=== PATIENT | male | born 1975 | race Caucasian/White ===

== ENCOUNTER 2024-06-18 14:03 | Inpatient (IN) | payer MEDICAID, SELFPAY ==
[2024-06-18] VITALS (7 sets, daily range): BP systolic 119–138; BP diastolic 73–87; PULSE 104–111; RESP 15–19; TEMP 36.5–36.9; O2SAT 96–98; BMI 22.5
--- NOTE | ~2024-06-18 | XR_ITS ---
CLINICAL HISTORY: elevated WBC, souce unclear 2 view chest x-ray Comparison: None Findings: Low lung volumes atelectasis/pneumonitis. Infectious inflammatory etiologies are favored by imaging given the asymmetry, right worse than left. Atypical or superimposed edema is considered less likely. Mild emphysematous changes suggested. No pneumothorax or pleural effusion. Cardiac silhouette and mediastinal contours are within limits of normal. Right lateral rib deformities appear subacute to old with callus formation and remodeling at this time. IMPRESSION: Nonspecific pulmonary opacities, right worse than left. Differential considerations include pneumonitis and/or pneumonia. This document has been electronically signed by: Lowell Marroquin MD on 06/18/2024 21:20:06
--- NOTE | ~2024-06-18 | CT_ITS ---
CLINICAL HISTORY: New liver failure, abdo pain, elevated lipase CT abdomen and pelvis without contrast Comparison: None Findings: No consolidation of the imaged lung bases. Mild eventration of the left hemidiaphragm, dorsally. Mild free fluid in the abdomen pelvis may be due to ascites given question mild liver surface contour curvature particularly at anterior margin of the left lobe (image number 22 of series 2). Free fluid may obscure sites of inflammation including about the pancreas, gallbladder, bowel, and appendix. Index cystic structure is medially directed to the left from the uncinate process of the pancreas measuring 2.6 cm (image number 32 of series 2). The spleen is nonenlarged. The adrenal glands are normal. No hydronephrosis. No obstructing stone in either kidney or either ureter. Gallbladder is distended with mild wall thickening. This is nonspecific given underlying liver disease. Mild fluid and dilatation of small-bowel loops is nonspecific. Mild ileus secondary to ascites is considered. Small-bowel obstruction is considered less likely by imaging. Wall thickening of the large intestine is nonspecific and diffuse. Imaged appendix is nondilated (image number 55 of series 2). Prostate gland is unremarkable for CT. Urinary bladder is unremarkable accounting for volume averaging in the pelvis. Vascular calcifications noted. Degenerative changes include imaged hips, SI joints, and spine. Degenerative disc changes include vacuum disc phenomenon and disc bulges at L4-L5 and L5-S1 mild inferior migration of the gas of the disc material at the lumbosacral junction. Minimal vertebral height losses appear old chronic. IMPRESSION: 1. Mild liver surface contour abnormality concerning for cirrhosis. Moderate free fluid in the abdomen and pelvis as can be seen with ascites. The spleen is nonenlarged at this time. 2. Nonspecific cystic lesion medially directed from the uncinate process of the pancreas, measuring 2.6 cm. Differential considerations include small pseudocyst. Walled-off area of necrosis and neoplasm are not excluded by noncontrast CT. Please consider follow-up; as clinically directed. 3. Mild small bowel dilatation is nonspecific. Differential considerations include ileus secondary to ascites. 4. Diffuse wall thickening of the large intestine. Differential considerations include ascites. 5. Degenerative disc changes greater than expected for age, particularly in the lower lumbar spine. This document has been electronically signed by: Lowell Marroquin MD on 06/18/2024 19:01:49
--- NOTE | ~2024-06-18 | XR_ITS ---
EXAMINATION: XR CHEST 1 VIEW HISTORY: sob COMPARISON: Comparison is made with the prior examination dated 06/18/2024. FINDINGS: A single AP portable view of the chest performed at 1:39 PM is submitted. There are diffuse bilateral airspace opacities, slightly greater on the right. Findings may represent diffuse pneumonia or ARDS. Less likely pulmonary edema. There is no pleural effusion, pneumothorax, or pulmonary vascular congestion. The heart is normal in size. The bones are intact. XR/XR chest 1V IMPRESSION: Diffuse bilateral airspace opacities compatible, with pneumonia or ARDS. Pulmonary edema is felt to be less likely given normal heart size and lack of pleural effusions. Electronically signed by: Juwan Kelley MD 06/22/2024 01:53 PM SUJAT[facility]
--- NOTE | ~2024-06-18 | US_ITS ---
Ultrasound paracentesis History: Ascites. Risks and benefits and possible complications were discussed with the patient and consent form was signed. A safe pocket of ascitic fluid was identified using ultrasound guidance, and the overlying skin was marked. The abdomen prepped and draped in sterile fashion. 1% lidocaine was used as a local anesthetic. Using ultrasound guidance, a 5 fr catheter was placed into the ascitic pocket. 2.0 liters of yellow fluid was removed passively. The catheter was then removed. A few scheduling representative images from before and after the examination were obtained. The procedure was performed by Alessio Bella PA-C and supervised by Dr. Viveros. US/US paracentesis abd w/image Impression: Ultrasound-guided paracentesis as described above. No immediate complications Electronically signed by: Patrick Morgan MD 06/21/2024 05:26 PM [facility] JOHNSON
--- NOTE | 2024-06-18 15:01 | ED_ITS ---
HPI - General Adult General Chief complaint: Abdominal Pain Stated complaint: Abd pain, jaundice, GI bleed Time Seen by Provider: 06/18/24 17:00 History of Present Illness ED Provider: Chong LAM narrative: The patient is a 48-year-old male with a history of alcoholism. He also has a history of previous episodes of alcoholic pancreatitis. The patient says that around 2.5 weeks ago he started to experience a sense of abdominal discomfort and distention coupled with some degree of yellowing of his skin. These symptoms have gotten worse over the last few weeks and over the last 2 days he has been experiencing worsening abdominal discomfort and distention. His family has been trying to get him to come to the emergency room for the last couple of weeks but he has been reluctant to come to the hospital hoping he would get better on his own if he stopped drinking. Over the last 2 days the pain has gotten worse and he finally agreed to come to the hospital. Related Data Allergies Allergy/AdvReac Type Severity Reaction Status Date / Time No Known Allergies Allergy Verified 06/18/24 15:03 Review of Systems 2 Review of Systems: Yes all other systems are reviewed and are negative [facility] Social History Social History Alcohol intake: current Alcohol intake frequency: a few times a week Alcohol type: beer and hard liquor Smoked in Last 30 Days: Yes Use of substances other than those prescribed or required for medical reasons: Yes Substance Use Type: Marijuana Substance Use Frequency: Occasionally Advance Directives: No Advance Directives Information Provided: Yes Do you have a plan to hurt others: No Plan Physical Exam ED Vital Signs: Vital Signs - 24 hr 06/18/24 15:01 06/18/24 17:04 06/18/24 17:42 Temperature 98.4 F 97.9 F Pulse Rate 111 H 104 H Respiratory Rate 18 16 16 Blood Pressure 138/73 136/78 Pulse Oximetry 98 97 Oxygen Delivery Method Room Air Room Air 06/18/24 19:20 06/18/24 20:02 06/18/24 20:16 Temperature 97.7 F Pulse Rate 107 H 105 H 108 H Respiratory Rate 18 15 19 Blood Pressure 119/80 124/87 133/79 Pulse Oximetry 97 96 98 Oxygen Delivery Method Room Air Room Air BMI result Body Mass Index 22.5 Const Other: The patient is awake and alert. He seems fairly coherent. He is obviously jaundiced. He looks quite chronically ill. He does not seem in acute distress or toxic however. HENMT Other: Face is symmetrical. Mucous membranes are moist. Eyes Other: Pupils are round equal, scleral icterus is present. Neck Neck: Yes no JVD Resp Effort & Inspection: normal respiratory effort Auscultation: clear to auscultation bilaterally Cardio Rate: tachycardic Rhythm: regular rhythm Heart sounds: S1 normal heart sound present and S2 normal heart sound present GI Other: The abdomen is distended and somewhat firm. He has left-sided tenderness. No rebound. Skin Other: The skin is jaundiced. Neuro Other: The patient is awake and alert. He says that he feels that his thoughts are somewhat confused but he does not seem frankly incoherent or encephalopathic. I do not appreciate any asterixis. Cranial nerves are intact. He moves his extremities symmetrically. Extrem Other: Slight peripheral edema at the ankles. Course Course Course Narrative: This is an RME performed by Sarika Herrmann CNP: Additional HPI, ROS, PE not included below will be deferred to primary provider. Patient is a 48-year-old male who presents emergency department for evaluation. He admits that he does not follow with a doctor regularly. Admits to a history of pancreatitis 7 years ago secondary to alcohol use disorder. He reports he last consume alcohol 05/27/2024 as he was experiencing abdominal pain afterwards. Soon thereafter he noticed that his skin was turning yellow, his abdomen was quite painful round and distended, and has been having intermittent episodes of light pink/red blood from the rectum when pushing for a bowel movement. Exam: Jaundice, tachycardic, abdominal distention firm and tender to palpate. catering administrative assistant made aware of patient. Plan: Serum labs, hepatitis series, viral serologies Medications Administered Discontinued Medications Generic Name Dose Route Start Last Admin Trade Name Freq PRN Reason Stop Dose Admin Ceftriaxone Sodium 1 gm 06/18/24 21:39 06/18/24 22:00 Ceftriaxone Sodium 1 Gm Vial IVPUSH 06/18/24 21:40 1 gm ONCE ONE Administration Sodium Chloride 1,000 mls @ 999 mls/hr 06/18/24 18:45 06/18/24 19:53 Ns IV 06/18/24 19:45 Infused .Q1H1M EMILY Infusion Sodium Chloride 1,000 mls @ 999 mls/hr 06/18/24 21:45 06/18/24 23:34 Ns IV 06/18/24 22:45 Infused .Q1H1M EMILY Infusion Azithromycin 500 mg/ Sodium 250 mls @ 125 mls/hr 06/18/24 21:40 06/18/24 22:07 Chloride IV 06/18/24 23:39 125 mls/hr ONCE ONE Administration Lidocaine HCl 5 ml 06/18/24 19:38 06/18/24 20:04 Lidocaine Hcl 1 % Mpf 5 Ml Vial INFILTRATI 06/18/24 19:39 5 ml ONCE ONE Administration Morphine Sulfate 4 mg 06/18/24 17:17 06/18/24 17:42 Morphine Sulfate 4 Mg/Ml Cartridge IVPUSH 06/18/24 17:18 4 mg ONCE ONE Administration Protocol Morphine Sulfate 4 mg 06/18/24 22:04 06/18/24 22:24 Morphine Sulfate 4 Mg/Ml Cartridge IVPUSH 06/18/24 22:05 4 mg ONCE ONE Administration Protocol Procedures Paracentesis Time Out Performed: Yes Indication: possible spontaneous bacterial peritonitis Procedure: diagnostic paracentesis Location: RLQ Local Anesthetic: lidocaine 1% Amount of anesthesia used (mL): 3 Bedside Ultrasound Used: yes, Ascites confirmed and location marked Preparation: sterile prep and drape Amount of fluid obtained (mL): 50 Fluid: clear (Straw colored) Size of Needle Used: 18 Post Procedure Exam: awake, alert Patient Tolerated Procedure: well Complications: none Medical Decision Making Medical Decision Making [facility] Narrative: The patient is a 48-year-old male who was an alcoholic who presents with jaundice and significant liver decompensation. Presumably this is a a great deal of alcoholic liver disease. Whether this is an acute alcoholic hepatitis or a decompensation of cirrhosis is not entirely clear at the moment. He also has compromised renal function. I performed a diagnostic paracentesis after identifying a pocket of fluid of the ultrasound. This was done under sterile conditions. The fluid was clear straw- colored fluid. Cell count does not suggest spontaneous bacterial peritonitis. The patient has high white count. CRP is also somewhat elevated. Blood cultures were sent although my suspicion for an acute infection is not very high. A chest x-ray was done more to look for a possible source of his elevated white count than because of symptoms of pneumonia. I was somewhat surprised that the x-ray was read as showing signs of pneumonitis. The patient will be covered with antibiotics, ceftriaxone and azithromycin, because of the x-ray finding but my suspicion for a definite acute infectious process is still very low and I do not think the patient is septic. His lactate is normal. His urinalysis is not suggestive of a UTI. I discussed the case with Dr. Singh of Gastroenterology. The patient will be hydrated overnight. The patient has Madrey's discrimination score is high. Steroids may be started after a period of observation. The patient will be admitted to the hospitalist service for further care. Lab Data 06/18/24 15:58 06/18/24 15:58 Labs: Lab Results 06/18/24 06/18/24 06/18/24 Range/Units 15:22 15:58 17:21 WBC 27.2 H (4.8-10.8) X10*3/uL RBC 3.81 L (4.60-5.80) X10*6/uL Hgb 11.5 L (14.0-18.0) g/dl Hct 33.0 L (42.0-52.0) % MCV 86.6 (80.0-98.0) fL MCH 30.2 (27.0-33.0) pg MCHC 34.9 (31.0-36.0) g/dl RDW 15.0 (11.0-16.0) % Plt Count 375 (160-400) X10*3/uL MPV 10.9 (9.4-12.4) fL Immature Gran % (Auto) Cancelled Neut % (Auto) Cancelled Lymph % (Auto) Cancelled [place]wey % (Auto) Cancelled Eos % (Auto) Cancelled Baso % (Auto) Cancelled Lymph # (Auto) Cancelled [place]wey # (Auto) Cancelled Eos # (Auto) Cancelled Baso # (Auto) Cancelled Abs Immat Gran (auto) Cancelled Absolute Neuts (auto) Cancelled Absolute Nucleated RBC 0.000 (0.0-0.012) X10*3/uL Nucleated RBC % (auto) 0.0 (0.0-0.2) /100WBC Neutrophils % (Manual) 87 H (45-73) % Band Neutrophils % 4 (3-5) % Lymphocytes % (Manual) 3 L (20-40) % Monocytes % (Manual) 6 (2-11) % Abs Neuts (Manual) 24.8 H (2.0-8.3) X10*3/uL Lymphocytes # (Manual) 0.8 L (1.2-4.9) X10*3/uL Monocytes # (Manual) 1.6 H (0.1-1.2) X10*3/uL Toxic Vacuolation PRESENT Platelet Estimate NORMAL (NORMAL) Large Platelets PRESENT Plt Morphology Comment NOTED RBC Morphology NOTED Microcytosis 1+ (5-14) /OIF Target Cells 1+ (5-14) /OIF [place] Cells 1+ (0-2) /OIF PT 22.9 H (10.9-12.4) SEC INR 2.0 H (0.9-1.1) Sodium 124 L (135-145) mmol/L Potassium 3.8 (3.3-5.1) mmol/L Chloride 85 L (96-108) mmol/L Carbon Dioxide 28 (22-29) mmol/L Anion Gap 15 (12-20) BUN 28 H (9-16) mg/dL Creatinine 2.49 H (0.5-1.4) mg/dL Estim Creat Clear Calc 36.2 Estimated GFR 28 Random Glucose 120 H (60-115) mg/dL Lactic Acid 1.7 (0.5-2.0) mmol/L Calcium 8.8 (8.4-10.2) mg/dL Magnesium 1.8 (1.6-2.6) mg/dL Total Bilirubin 17.7 H (0.0-1.0) mg/dL Direct Bilirubin 12.9 H (0.0-0.5) mg/dL AST 207 H (5-37) U/L ALT 86 H (0-40) U/L Alkaline Phosphatase 118 H (39-117) U/L Ammonia (13-55) umol/L C-Reactive Protein 9.93 H (< or = 0.50) mg/dL Total Protein 8.2 H (6.5-8.0) g/dL Albumin 2.3 L (3.5-5.0) g/dL Lipase 445 H (8-78) U/L Urine Color Urine Appearance Urine pH (5.0-9.0) Ur Specific [place] (1.005-1.025) Urine Protein (Neg-Trace) mg/dL Urine Glucose (UA) (Negative) mg/dL Urine Ketones (Negative) mg/dL Urine Blood (Negative) Urine Nitrite (Negative) Ur Leukocyte Esterase (Negative) Urine RBC (0-2) /HPF Urine WBC (0-5) /HPF Ur Squamous Epith Cells (0-2) /HPF Urine Bacteria (None Seen) Hyaline Casts (0-2) /LPF Granular Casts Peritoneal WBC X10*3/uL Peritoneal RBC X10*6/uL Periton Neutrophils % Periton Lymphocytes % Peritoneal Monocytes % Peritoneal Other Cells % Ethyl Alcohol < 10 mg/dL Influenza Type A (PCR) NEGATIVE (Negative) Influenza Type B (PCR) NEGATIVE (Negative) RSV RNA Qual (PCR) NEGATIVE (Negative) SARS-CoV-2 RNA (RT-PCR) NEGATIVE (Negative) Blood Type Antibody Screen Blood Bank Comment 06/18/24 06/18/24 06/18/24 Range/Units 17:56 18:07 20:14 WBC (4.8-10.8) X10*3/uL RBC (4.60-5.80) X10*6/uL Hgb (14.0-18.0) g/dl Hct (42.0-52.0) % MCV (80.0-98.0) fL MCH (27.0-33.0) pg MCHC (31.0-36.0) g/dl RDW (11.0-16.0) % Plt Count (160-400) X10*3/uL MPV (9.4-12.4) fL Immature Gran % (Auto) Neut % (Auto) Lymph % (Auto) [place] % (Auto) Eos % (Auto) Baso % (Auto) Lymph # (Auto) [place] # (Auto) Eos # (Auto) Baso # (Auto) Abs Immat Gran (auto) Absolute Neuts (auto) Absolute Nucleated RBC (0.0-0.012) X10*3/uL Nucleated RBC % (auto) (0.0-0.2) /100WBC Neutrophils % (Manual) (45-73) % Band Neutrophils % (3-5) % Lymphocytes % (Manual) (20-40) % Monocytes % (Manual) (2-11) % Abs Neuts (Manual) (2.0-8.3) X10*3/uL Lymphocytes # (Manual) (1.2-4.9) X10*3/uL Monocytes # (Manual) (0.1-1.2) X10*3/uL Toxic Vacuolation Platelet Estimate (NORMAL) Large Platelets Plt Morphology Comment RBC Morphology Microcytosis /OIF Target Cells /OIF Michelle Cells /OIF PT (10.9-12.4) SEC INR (0.9-1.1) Sodium (135-145) mmol/L Potassium (3.3-5.1) mmol/L Chloride (96-108) mmol/L Carbon Dioxide (22-29) mmol/L Anion Gap (12-20) BUN (9-16) mg/dL Creatinine (0.5-1.4) mg/dL Estim Creat Clear Calc Estimated GFR Random Glucose (60-115) mg/dL Lactic Acid 1.2 (0.5-2.0) mmol/L Calcium (8.4-10.2) mg/dL Magnesium (1.6-2.6) mg/dL Total Bilirubin (0.0-1.0) mg/dL Direct Bilirubin (0.0-0.5) mg/dL AST (5-37) U/L ALT (0-40) U/L Alkaline Phosphatase (39-117) U/L Ammonia 103 H (13-55) umol/L C-Reactive Protein (< or = 0.50) mg/dL Total Protein (6.5-8.0) g/dL Albumin (3.5-5.0) g/dL Lipase (8-78) U/L Urine Color Urine Appearance Urine pH (5.0-9.0) Ur Specific [place] (1.005-1.025) Urine Protein (Neg-Trace) mg/dL Urine Glucose (UA) (Negative) mg/dL Urine Ketones (Negative) mg/dL Urine Blood (Negative) Urine Nitrite (Negative) Ur Leukocyte Esterase (Negative) Urine RBC (0-2) /HPF Urine WBC (0-5) /HPF Ur Squamous Epith Cells (0-2) /HPF Urine Bacteria (None Seen) Hyaline Casts (0-2) /LPF Granular Casts Peritoneal WBC 0.220 X10*3/uL Peritoneal RBC < 0.002 X10*6/uL Periton Neutrophils 21 % Periton Lymphocytes 16 % Peritoneal Monocytes 32 % Peritoneal Other Cells 31 % Ethyl Alcohol mg/dL Influenza Type A (PCR) (Negative) Influenza Type B (PCR) (Negative) RSV RNA Qual (PCR) (Negative) SARS-CoV-2 RNA (RT-PCR) (Negative) Blood Type A Positive Antibody Screen NEGATIVE Blood Bank Comment Technical 06/18/24 Range/Units 22:08 WBC (4.8-10.8) X10*3/uL RBC (4.60-5.80) X10*6/uL Hgb (14.0-18.0) g/dl Hct (42.0-52.0) % MCV (80.0-98.0) fL MCH (27.0-33.0) pg MCHC (31.0-36.0) g/dl RDW (11.0-16.0) % Plt Count (160-400) X10*3/uL MPV (9.4-12.4) fL Immature Gran % (Auto) Neut % (Auto) Lymph % (Auto) [place] % (Auto) Eos % (Auto) Baso % (Auto) Lymph # (Auto) [place] # (Auto) Eos # (Auto) Baso # (Auto) Abs Immat Gran (auto) Absolute Neuts (auto) Absolute Nucleated RBC (0.0-0.012) X10*3/uL Nucleated RBC % (auto) (0.0-0.2) /100WBC Neutrophils % (Manual) (45-73) % Band Neutrophils % (3-5) % Lymphocytes % (Manual) (20-40) % Monocytes % (Manual) (2-11) % Abs Neuts (Manual) (2.0-8.3) X10*3/uL Lymphocytes # (Manual) (1.2-4.9) X10*3/uL Monocytes # (Manual) (0.1-1.2) X10*3/uL Toxic Vacuolation Platelet Estimate (NORMAL) Large Platelets Plt Morphology Comment RBC Morphology Microcytosis /OIF Target Cells /OIF [place] Cells /OIF PT (10.9-12.4) SEC INR (0.9-1.1) Sodium (135-145) mmol/L Potassium (3.3-5.1) mmol/L Chloride (96-108) mmol/L Carbon Dioxide (22-29) mmol/L Anion Gap (12-20) BUN (9-16) mg/dL Creatinine (0.5-1.4) mg/dL Estim Creat Clear Calc Estimated GFR Random Glucose (60-115) mg/dL Lactic Acid (0.5-2.0) mmol/L Calcium (8.4-10.2) mg/dL Magnesium (1.6-2.6) mg/dL Total Bilirubin (0.0-1.0) mg/dL Direct Bilirubin (0.0-0.5) mg/dL AST (5-37) U/L ALT (0-40) U/L Alkaline Phosphatase (39-117) U/L Ammonia (13-55) umol/L C-Reactive Protein (< or = 0.50) mg/dL Total Protein (6.5-8.0) g/dL Albumin (3.5-5.0) g/dL Lipase (8-78) U/L Urine Color Dark Yellow Urine Appearance Cloudy Urine pH 5.0 (5.0-9.0) Ur Specific [place] 1.020 (1.005-1.025) Urine Protein 30 (1+) H (Neg-Trace) mg/dL Urine Glucose (UA) Negative (Negative) mg/dL Urine Ketones Negative (Negative) mg/dL Urine Blood Negative (Negative) Urine Nitrite Positive H (Negative) Ur Leukocyte Esterase Small (1+) H (Negative) Urine RBC >20 H (0-2) /HPF Urine WBC 0-5 (0-5) /HPF Ur Squamous Epith Cells 11-20 (0-2) /HPF Urine Bacteria None Seen (None Seen) Hyaline Casts 11-20 (0-2) /LPF Granular Casts Present Peritoneal WBC X10*3/uL Peritoneal RBC X10*6/uL Periton Neutrophils % Periton Lymphocytes % Peritoneal Monocytes % Peritoneal Other Cells % Ethyl Alcohol mg/dL Influenza Type A (PCR) (Negative) Influenza Type B (PCR) (Negative) RSV RNA Qual (PCR) (Negative) SARS-CoV-2 RNA (RT-PCR) (Negative) Blood Type Antibody Screen Blood Bank Comment Independent Interpretation I performed an independent interpretation of an: EKG Interpretation: EKG at 15:12 shows sinus tachycardia at 109 beats per minute. Discharge Plan Discharge Clinical Impression: Jaundice, Ascites, Acute kidney injury, Hyponatremia, Pneumonitis Patient Disposition: Admitted As Inpatient
--- NOTE | 2024-06-18 15:05 | ECG_ITS ---
Test Reason : ABD PAIN Blood Pressure : */* mmHG Vent. Rate : 109 BPM Atrial Rate : 109 BPM P-R Int : 134 ms QRS Dur : 88 ms QT Int : 356 ms P-R-T Axes : 39 15 18 degrees QTcB Int : 479 ms Sinus tachycardia Otherwise normal ECG No previous ECGs available Referred By: Myah Herrmann Electronically Signed By: Saleem Dominguez
[2024-06-18 16:10] LABS: Mean Corpuscular Volume 86.6 fL (80.0-98.0); Mean Platelet Volume 10.9 fL (9.4-12.4); Platelet Count 375 X10*3/uL (160-400); Red Blood Count 3.81 X10*6/uL (4.60-5.80)
[2024-06-18 16:16] LABS: Prothrombin Time 22.9 SEC (10.9-12.4)
[2024-06-18 16:32] LABS: Influenza A PCR NEGATIVE (Negative); Influenza B PCR NEGATIVE (Negative); Resp Syncy Virus RNA Qual PCR NEGATIVE (Negative); SARS COV2 PCR INHOUSE NEGATIVE (Negative)
[2024-06-18 16:36] LABS: Alanine Aminotransferase 86 U/L (0-40); Albumin Level 2.3 g/dL (3.5-5.0); Alkaline Phosphatase 118 U/L (39-117); Anion Gap 15 (12-20); Aspartate Amino Transferase 207 U/L (5-37); Bilirubin Direct 12.9 mg/dL (0.0-0.5); Bilirubin Total 17.7 mg/dL (0.0-1.0); Blood Urea Nitrogen 28 mg/dL (9-16); Calcium 8.8 mg/dL (8.4-10.2); Carbon Dioxide 28 mmol/L (22-29); Chloride 85 mmol/L (96-108); Creatinine Clr Calc Pharmacy 36.2; Estimated Glomerular Filt Rate 28; Ethanol < 10 mg/dL; Glucose Random 120 mg/dL (60-115); Magnesium 1.8 mg/dL (1.6-2.6); Potassium 3.8 mmol/L (3.3-5.1); Sodium 124 mmol/L (135-145); Total Protein 8.2 g/dL (6.5-8.0)
[2024-06-18 16:37] LABS: Lipase 445 U/L (8-78)
[2024-06-18 16:54] LABS: Hemoglobin 11.5 g/dl (14.0-18.0); WBC ABN SCTR FOR CBC 1; White Blood Count 27.2 X10*3/uL (4.8-10.8)
[2024-06-18 16:55] LABS: Mean Corpuscular Hemoglobin 30.2 pg (27.0-33.0)
[2024-06-18 16:56] LABS: Mean Corpuscular HGB Conc 34.9 g/dl (31.0-36.0)
[2024-06-18 17:18] LABS: Band Neutrophils Percent 4 % (3-5); Lymphocytes Absolute Manual 0.8 X10*3/uL (1.2-4.9); Lymphocytes Percent Manual 3 % (20-40); Monocytes Absolute Manual 1.6 X10*3/uL (0.1-1.2); Monocytes Percent Manual 6 % (2-11); Neutrophils Absolute Manual 24.8 X10*3/uL (2.0-8.3); Neutrophils Percent Manual 87 % (45-73); RBC Morphology NOTED; Target Cells 1+ (5-14) /OIF
[2024-06-18 17:19] LABS: Burr Cells 1+ (0-2) /OIF; Large Platelet PRESENT; Microcytosis 1+ (5-14) /OIF; Platelet Estimate NORMAL (NORMAL); Platelet Morphology Comment NOTED; Toxic Vacuolation PRESENT
[2024-06-18 17:30] LABS: C Reactive Protein 9.93 mg/dL (< or = 0.50)
[2024-06-18] MEDS: Morphine Sulfate 4 MG/ML CARTRIDGE IVPUSH ×2 (17:42→22:24)
[2024-06-18 17:50] LABS: Lactic Acid 1.7 mmol/L (0.5-2.0)
[2024-06-18 18:27] LABS: Ammonia 103 umol/L (13-55)
[2024-06-18 18:34] LABS: Lactic Acid 1.2 mmol/L (0.5-2.0)
[2024-06-18] MEDS: 0.9 % Sodium Chloride 1,000 ML 999 ML IV ×2 (18:44→21:59)
[2024-06-18] MEDS: Lidocaine HCl 1 % MPF 5 ML VIAL INFILTRATI (20:04)
--- NOTE | 2024-06-18 20:08 | PC.NURSE ---
time out performed by MD Schwarz at 20:08 . diagnostic paracentesis being done for abdominal fluid collection to be sent to lab
[2024-06-18 20:30] LABS: MN% 70.6 %; PMN% 29.4 %
[2024-06-18 20:31] LABS: RBC Peritoneal Fluid < 0.002 X10*6/uL
[2024-06-18 21:13] LABS: BF Shift QC OK YES; Lymphocyte Peritoneal Fl 16 %; Monocytes Peritoneal Fl 32 %; Neutrophils Peritoneal Fluid 21 %; Other Peritioneal Fl 31 %
[2024-06-18] MEDS: cefTRIAXone sodium 1 GM VIAL IVPUSH (22:00)
[2024-06-18] MEDS: Azithromycin 500 MG in 0.9 % Sodium Chloride 250 ML 125 MG IV (22:07)
[2024-06-18 22:25] LABS: Appearance Urine Cloudy; Color Urine Dark Yellow; Glucose Urine UA Negative (Negative); Leukocyte Esterase Urine Small (1+) (Negative); Nitrite Urine Positive (Negative); UMIC TRIGGER UACC YES; Urine Blood Negative (Negative); Urine Ketones Negative (Negative); Urine Protein 30 (1+) mg/dL (Neg-Trace)
[2024-06-18 22:36] LABS: Bacteria Urine None Seen (None Seen); Granular Casts Urine Present; RBC Urine >20 /HPF (0-2); UACC Culture Trigger YES; WBC Urine 0-5 /HPF (0-5)
--- NOTE | 2024-06-18 22:56 | PM.IMHP ---
History of Present Illness Date of Service: 06/18/24 Attending physician on admission: Coretta Aparicio Chief Complaint: Abdominal pain Lazaro Hernandez is a 48 years old man with past medical history is or alcohol abuse presents to the emergency department complaining of worsening generalized abdominal pain over the last couple of days associated with increased abdominal girth, shortness of breath with exertion, nausea, vomiting (nonbloody) and rectal bright red bleeding. He is not aware that his skin and sclerae have yellowish tint. He denied chest pain, headache, palpitations or dizziness. Denies fevers chills. Last time he drank alcohol was May 27. He denied tobacco smoking or illicit drug use. He takes Tylenol very occasionally. He does not take any medication daily. Patient underwent a paracentesis in the emergency department. In the emergency department he was found to have stable vital signs. There is a mild degree of tachycardia. Blood workup showed leukocytosis of 27.2, hemoglobin 11.5 and platelets are normal. CRP is 9.93. INR is 2.0. Sodium is low, 124, potassium is 3.8, BUN is 28 and creatinine 2.49. Lactic acid is normal x2. LFTs are mildly elevated (bilirubin is 17.7, direct bilirubin 12.9, AST 207, ALT 86 and alk-phos 118). Albumin is 2.3 and lipase 445. Ammonia level is elevated 103. EtOH level < 10. Viral testing for COVID-19, influenza and RSV is negative. Hepatitis panel is pending. Abdominal pelvis CT scan showed pancreatic lesion of 2.6 cm that could be neoplasm, small pseudocyst or necrosis. CXR showed finding consistent with pneumonitis. ECG showed sinus tachycardia, heart rate 109 bpm without ischemic changes. Peritoneal fluid analysis is not consistent with infection or hemorrhage. ED tx: Ceftriaxone 1 g IV, morphine 8 mg IV (total), NS 2 L bolus, Review of Systems Review of Systems: All 12 systems were reviewed and normal except as noted in HPI. [facility] Social History Alcohol intake: current Alcohol intake frequency: a few times a week Alcohol type: beer and hard liquor Smoked in Last 30 Days: Yes Use of substances other than those prescribed or required for medical reasons: Yes Substance Use Type: Marijuana Substance Use Frequency: Occasionally Advance Directives: No Advance Directives Information Provided: Yes Do you have a plan to hurt others: No Plan Meds Allergies Allergy/AdvReac Type Severity Reaction Status Date / Time No Known Allergies Allergy Verified 06/18/24 15:03 Active Medications: Current Medications Azithromycin 500 mg/ Sodium (Chloride) 250 mls @ 125 mls/hr IV ONCE ONE Stop: 06/18/24 23:39 Last Admin: 06/18/24 22:07 Dose: 125 mls/hr Ondansetron HCl (Ondansetron Hcl 4 Mg/2 Ml Vial) 4 mg IVPUSH Q8H PRN PRN Reason: Nausea and Vomiting Sodium Chloride (0.9 % Sodium Chloride Flush 3 Ml Syringe) 3 ml IVFLUSH QSHIFT EMILY Physical Exam Vital Signs and Narrative: Vital Signs: Last Vital Signs Temp 97.7 F 06/18/24 19:20 Pulse 108 H 06/18/24 20:16 Resp 19 06/18/24 20:16 BP 133/79 06/18/24 20:16 Pulse Ox 98 06/18/24 20:16 O2 Del Method Room Air 06/18/24 20:16 BMI result Body Mass Index 22.5 Constitutional - Awake and Alert, No apparent distress. Chronically ill. Malnourished. HEENT - PERRL, EOMI. Yellow sclerae. Heart - Tachycardic. Normal rate. No murmurs Lungs - Normal lung expansion, Normal respiratory effort, No respiratory distress. Decreased breath sounds at bases. Abdoment - Distended. Generalized tenderness. No rebound. No guarding. (+) fluid wave. - No CVA tenderness Extremities - Bilateral pitting edema to the lower extremities. Musculoskeletal - generalized atrophy. Skin - Warm/Dry. Marked jaundice. Neurological - Alert & oriented x3. No focal weakness grossly noted. Normal speech. Psychological - Depressed affect Results Labs 06/18/24 15:58 06/18/24 15:58 Labs: Laboratory Results - last 24 hr 06/18/24 06/18/24 06/18/24 15:22 15:58 17:21 MCV 86.6 MCH 30.2 MCHC 34.9 RDW 15.0 Plt Count 375 MPV 10.9 Immature Gran % (Auto) Cancelled Neut % (Auto) Cancelled Lymph % (Auto) Cancelled [place] % (Auto) Cancelled Eos % (Auto) Cancelled Baso % (Auto) Cancelled Lymph # (Auto) Cancelled [place] # (Auto) Cancelled Eos # (Auto) Cancelled Baso # (Auto) Cancelled Abs Immat Gran (auto) Cancelled Absolute Neuts (auto) Cancelled Absolute Nucleated RBC 0.000 Nucleated RBC % (auto) 0.0 Neutrophils % (Manual) 87 H Band Neutrophils % 4 Lymphocytes % (Manual) 3 L Monocytes % (Manual) 6 Abs Neuts (Manual) 24.8 H Lymphocytes # (Manual) 0.8 L Monocytes # (Manual) 1.6 H Toxic Vacuolation PRESENT Platelet Estimate NORMAL Large Platelets PRESENT Plt Morphology Comment NOTED RBC Morphology NOTED Microcytosis 1+ (5-14) Target Cells 1+ (5-14) [place] Cells 1+ (0-2) PT 22.9 H INR 2.0 H Anion Gap 15 Estim Creat Clear Calc 36.2 Estimated GFR 28 Random Glucose 120 H Lactic Acid 1.7 Calcium 8.8 Magnesium 1.8 Total Bilirubin 17.7 H Direct Bilirubin 12.9 H AST 207 H ALT 86 H Alkaline Phosphatase 118 H Ammonia C-Reactive Protein 9.93 H Total Protein 8.2 H Albumin 2.3 L Lipase 445 H Urine Color Urine Appearance Urine pH Ur Specific [place] Urine Protein Urine Glucose (UA) Urine Ketones Urine Blood Urine Nitrite Ur Leukocyte Esterase Urine RBC Urine WBC Ur Squamous Epith Cells Urine Bacteria Hyaline Casts Granular Casts Peritoneal WBC Peritoneal RBC [place] Neutrophils Periton Lymphocytes Peritoneal Monocytes Peritoneal Other Cells Ethyl Alcohol < 10 Influenza Type A (PCR) NEGATIVE Influenza Type B (PCR) NEGATIVE RSV RNA Qual (PCR) NEGATIVE SARS-CoV-2 RNA (RT-PCR) NEGATIVE Blood Type Antibody Screen Blood Bank Comment 06/18/24 06/18/24 06/18/24 17:56 18:07 20:14 MCV MCH MCHC RDW Plt Count MPV Immature Gran % (Auto) Neut % (Auto) Lymph % (Auto) [place] % (Auto) Eos % (Auto) Baso % (Auto) Lymph # (Auto) [place] # (Auto) Eos # (Auto) Baso # (Auto) Abs Immat Gran (auto) Absolute Neuts (auto) Absolute Nucleated RBC Nucleated RBC % (auto) Neutrophils % (Manual) Band Neutrophils % Lymphocytes % (Manual) Monocytes % (Manual) Abs Neuts (Manual) Lymphocytes # (Manual) Monocytes # (Manual) Toxic Vacuolation Platelet Estimate Large Platelets Plt Morphology Comment RBC Morphology Microcytosis Target Cells [place] Cells PT INR Anion Gap Estim Creat Clear Calc Estimated GFR Random Glucose Lactic Acid 1.2 Calcium Magnesium Total Bilirubin Direct Bilirubin AST ALT Alkaline Phosphatase Ammonia 103 H C-Reactive Protein Total Protein Albumin Lipase Urine Color Urine Appearance Urine pH Ur Specific [place] Urine Protein Urine Glucose (UA) Urine Ketones Urine Blood Urine Nitrite Ur Leukocyte Esterase Urine RBC Urine WBC Ur Squamous Epith Cells Urine Bacteria Hyaline Casts Granular Casts Peritoneal WBC 0.220 Peritoneal RBC < 0.002 [place] Neutrophils 21 [place] Lymphocytes 16 Peritoneal Monocytes 32 Peritoneal Other Cells 31 Ethyl Alcohol Influenza Type A (PCR) Influenza Type B (PCR) RSV RNA Qual (PCR) SARS-CoV-2 RNA (RT-PCR) Blood Type A Positive Antibody Screen NEGATIVE Blood Bank Comment Technical 06/18/24 22:08 MCV MCH MCHC RDW Plt Count MPV Immature Gran % (Auto) Neut % (Auto) Lymph % (Auto) [place] % (Auto) Eos % (Auto) Baso % (Auto) Lymph # (Auto) [place] # (Auto) Eos # (Auto) Baso # (Auto) Abs Immat Gran (auto) Absolute Neuts (auto) Absolute Nucleated RBC Nucleated RBC % (auto) Neutrophils % (Manual) Band Neutrophils % Lymphocytes % (Manual) Monocytes % (Manual) Abs Neuts (Manual) Lymphocytes # (Manual) Monocytes # (Manual) Toxic Vacuolation Platelet Estimate Large Platelets Plt Morphology Comment RBC Morphology Microcytosis Target Cells Michelle Cells PT INR Anion Gap Estim Creat Clear Calc Estimated GFR Random Glucose Lactic Acid Calcium Magnesium Total Bilirubin Direct Bilirubin AST ALT Alkaline Phosphatase Ammonia C-Reactive Protein Total Protein Albumin Lipase Urine Color Dark Yellow Urine Appearance Cloudy Urine pH 5.0 Ur Specific [place] 1.020 Urine Protein 30 (1+) H Urine Glucose (UA) Negative Urine Ketones Negative Urine Blood Negative Urine Nitrite Positive H Ur Leukocyte Esterase Small (1+) H Urine RBC >20 H Urine WBC 0-5 Ur Squamous Epith Cells 11-20 Urine Bacteria None Seen Hyaline Casts 11-20 Granular Casts Present Peritoneal WBC Peritoneal RBC Periton Neutrophils Per[place] Lymphocytes Peritoneal Monocytes Peritoneal Other Cells Ethyl Alcohol Influenza Type A (PCR) Influenza Type B (PCR) RSV RNA Qual (PCR) SARS-CoV-2 RNA (RT-PCR) Blood Type Antibody Screen Blood Bank Comment Assessment and Plan (1) Jaundice: Status: Acute (2) Ascites: Status: Acute (3) Acute kidney injury: Status: Acute (4) Hyponatremia: Status: Acute Plan Lazaro Hernanedz is a 48 y/o man admitted with: 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 Admit to hospitalist service. Telemetry. Start treatment with midodrine and octreotide. Continue to monitor LFTs and renal function. Check APAP level. Check urine Na+. GI consult. Nephrology consult. Acute kidney injury likely secondary to above and/or GI bleeding, vomiting. Received 3L NS in ED. Avoid nephrotoxic agents. Continue to monitor renal function. Nephrology consult. Abdominal pain possible due to pancreatitis + pancreatic lesion (2.3) ?Necrosis, ?Small pseudocyst. Start empiric IV antibiotic therapy with Zosyn. Pain control with oxycodone only. Leukocytosis, tachycardia. ?Sepsis. Continue empiric IV antibiotic therapy with Zosyn. Blood cultures obtained -will follow results. Rectal bleeding, bright red, presumed due to hemorrhoids. Continue to monitor H&H. GI consult. Ascites. Peritoneal fluid analysis: Negative for SBP. Will avoid diuretics for now due to HIWOT. IR consult for therapeutic paracentesis (he is still having significant ascites). Hyponatremia. Secondary to 3rd spacing/liver disease. Continue to monitor Elevated ammonia. No signs or symptoms of encephalopathy at this moment. Alcohol abuse. Asthma alcoholic drink 05/2024. CIWA. Thiamine, folic acid and multivitamins. DVT prophylaxis: SCDs only (pharmacological DVT prophylaxis contraindicated due to rectal bleeding). GI prophylaxis: Protonix IV Code status: Full Patient will need hospitalization for at least 2 midnights for liver or renal failure concerning for hepatorenal syndrome treatment with octreotide, albumin and midodrine as well as evaluation by subspecialties. Quality Stroke Does the patient have a stroke diagnosis?: No VTE Prior VTE?: No VTE Risk Level:: Medical - moderate - high VTE Device Contraindication: N/A - Device Ordered VTE Drug Contraindication: Treatment Not Indicated
[2024-06-18] MEDS: Pantoprazole Sodium 40 MG/10 ML VIAL IVPUSH (23:50)
[2024-06-18] MEDS: Octreotide Acetate 500 MCG in 0.9 % Sodium Chloride 500 ML 50.1 MCG IVCONT (23:50)
[2024-06-18] MEDS: Midodrine HCl 2.5 MG TABLET 7.5 MG PO (23:51)
[2024-06-18] MEDS: Thiamine HCL 100 MG in 0.9 % Sodium Chloride 100 ML 202 MG IV (23:55)
[2024-06-19] VITALS (12 sets, daily range): BP systolic 93–131; BP diastolic 59–87; PULSE 105–117; RESP 14–22; TEMP 36.3–36.6; O2SAT 94–98
[2024-06-19] MEDS: ondansetron HCL 4 MG/2 ML VIAL IVPUSH ×3 (00:04→18:10)
[2024-06-19 00:12] LABS: Sodium Urine Random < 20.0 mmol/L
[2024-06-19 00:35] LABS: Hematocrit 31.9 % (42.0-52.0); Hemoglobin 11.8 g/dl (14.0-18.0); Mean Corpuscular Hemoglobin 32.7 pg (27.0-33.0); Mean Corpuscular Volume 88.4 fL (80.0-98.0); Mean Platelet Volume 11.2 fL (9.4-12.4); Platelet Count 304 X10*3/uL (160-400); Red Blood Count 3.61 X10*6/uL (4.60-5.80); Red Cell Distribution Width 15.3 % (11.0-16.0)
[2024-06-19 00:39] LABS: WBC ABN SCTR FOR CBC 1; White Blood Count 26.2 X10*3/uL (4.8-10.8)
[2024-06-19 00:55] LABS: Acetaminophen LAB < 3 mcg/mL (<30); Alanine Aminotransferase 76 U/L (0-40); Alkaline Phosphatase 103 U/L (39-117); Anion Gap 16 (12-20); Aspartate Amino Transferase 194 U/L (5-37); Bilirubin Total 15.7 mg/dL (0.0-1.0); Blood Urea Nitrogen 29 mg/dL (9-16); Carbon Dioxide 23 mmol/L (22-29); Chloride 92 mmol/L (96-108); Creatinine Clr Calc Pharmacy 39.9; Estimated Glomerular Filt Rate 31; Glucose Random 98 mg/dL (60-115); Potassium 3.8 mmol/L (3.3-5.1); Sodium 127 mmol/L (135-145); Total Protein 7.3 g/dL (6.5-8.0)
--- NOTE | 2024-06-19 03:29 | PC.NURSE ---
pt resting comfortably on stretcher in no apparent distress, on athletic monitor. call taveras within reach, plan of care ongoing.
[2024-06-19 04:20] LABS: B Type Natriuretic Peptide 117 pg/mL (<100)
[2024-06-19 04:38] LABS: HBc Num1 0.14 S/CO (0.00-0.79); Hepatitis A Antibody IgM 0.22 Index (0-0.79); Hepatitis B Core Antibody Nonreactive (Nonreactive); Hepatitis B Surface Antigen Negative (Negative); ~HepC Num1 0.17 S/CO (0.00-0.79); ~Hepatitis A Antibody IgM Nonreactive (Nonreactive); ~Hepatitis B Surface Antibody NONREACTIVE (Nonreactive); ~Hepatitis C Antibody Nonreactive (Nonreactive)
[2024-06-19 05:32] LABS: Hematocrit 30.8 % (42.0-52.0); Hemoglobin 11.2 g/dl (14.0-18.0); Mean Corpuscular HGB Conc 36.4 g/dl (31.0-36.0); Mean Corpuscular Hemoglobin 32.2 pg (27.0-33.0); Mean Corpuscular Volume 88.5 fL (80.0-98.0); Platelet Count 338 X10*3/uL (160-400); Red Blood Count 3.48 X10*6/uL (4.60-5.80); Red Cell Distribution Width 15.4 % (11.0-16.0)
[2024-06-19 05:35] LABS: WBC ABN SCTR FOR CBC 1; White Blood Count 29.9 X10*3/uL (4.8-10.8)
[2024-06-19 05:49] LABS: Alanine Aminotransferase 78 U/L (0-40); Albumin Level 2.1 g/dL (3.5-5.0); Alkaline Phosphatase 109 U/L (39-117); Anion Gap 15 (12-20); Aspartate Amino Transferase 192 U/L (5-37); Bilirubin Total 15.8 mg/dL (0.0-1.0); Blood Urea Nitrogen 30 mg/dL (9-16); Calcium 8.3 mg/dL (8.4-10.2); Carbon Dioxide 25 mmol/L (22-29); Chloride 91 mmol/L (96-108); Creatinine Clr Calc Pharmacy 37.5; Estimated Glomerular Filt Rate 29; Glucose Random 84 mg/dL (60-115); Magnesium 1.8 mg/dL (1.6-2.6); Potassium 3.9 mmol/L (3.3-5.1); Sodium 127 mmol/L (135-145); Total Protein 7.4 g/dL (6.5-8.0)
--- NOTE | 2024-06-19 08:22 | PM.GICN ---
History of Present Illness Data of Consult Service Date: 06/19/24 Requesting physician: Coretta Aparicio Primary Care Provider: None Physician HPI Reason for consult: Alcoholic hepatitis with ascites 48 YM with ETOH abuse seen at [facility] on 06/18/24 with worsening generalized abdominal pain and distension for the past 3 weeks. Pt also complains of shortness of breath with exertion, nausea, vomiting (nonbloody), dizziness and rectal bleeding. He admits to decreased PO intak with wt loss from 160 to 152 lbs. He is not aware that his skin and sclerae have yellowish tint. Pt notes BRB in the stool for the past 2 weeks associated with rectal/anal discomfort Pt denied chest pain, headache, palpitations or dizziness, fevers chills. Last time he drank alcohol was May 27. Pt admits to smoking 10 cigarettes a day and uses marijuana occasionally. He admits to drinking 6 packs of beer and some shots of hard liquor daily since his teenage years. He denies going through a treatment program for alcohol rehab in the past. He denied tobacco smoking or illicit drug use. He takes Tylenol very occasionally. He does not take any medication daily. 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 He lives in a two family house with his Mom and brother and has an 11 year old daughter. Patient's dad had liver disease and patient denies known family history of colon polyps or colon cancer Patient underwent a paracentesis in the emergency department and AF analysis was negative for SBP. In the ER, vital signs were stable with mild tachycardia. Labs showed leukocytosis of 27.2, hemoglobin 11.5 and platelets are normal. CRP is 9.93. INR is 2.0. Sodium is low, 124, potassium is 3.8, BUN is 28 and creatinine 2.49. Lactic acid is normal x2. LFTs were elevated (bilirubin is 17.7, direct bilirubin 12.9, AST 207, ALT 86 and alk-phos 118). Albumin is 2.3 and lipase 445. Ammonia level is elevated 103. EtOH level < 10. Viral testing for COVID-19, influenza and RSV is negative. Hepatitis panel is pending. CXR showed finding consistent with pneumonitis. ECG showed sinus tachycardia, heart rate 109 bpm without ischemic changes. Peritoneal fluid analysis is not consistent with infection or hemorrhage. ED tx: Ceftriaxone 1 g IV, morphine 8 mg IV (total), NS 2 L bolus, 06/18/[address] SCAN SHOWED: 1. Mild liver surface contour abnormality concerning for cirrhosis. Moderate free fluid in the abdomen and pelvis as can be seen with ascites. The spleen is non-enlarged at this time. 2. Nonspecific cystic lesion medially directed from the uncinate process of the pancreas, measuring 2.6 cm. Differential considerations include small pseudocyst. Walled-off area of necrosis and neoplasm are not excluded by noncontrast CT. Please consider follow-up; as clinically directed. 3. Mild small bowel dilatation is nonspecific. Differential considerations include ileus secondary to ascites. 4. Diffuse wall thickening of the large intestine. Differential considerations include ascites. 5. Degenerative disc changes greater than expected for age, particularly in the lower lumbar spine. Review of Systems Review of Systems: All 12 systems were reviewed and normal except as noted in HPI. [facility] Social History Social History Alcohol intake: current Alcohol intake frequency: a few times a week Alcohol type: beer and hard liquor Patient Tobacco Use Status: Never used Tobacco Smoked in Last 30 Days: Yes Use of substances other than those prescribed or required for medical reasons: Yes Substance Use Type: Marijuana Substance Use Frequency: Occasionally Advance Directives: No Advance Directives Information Provided: Yes Do you have a plan to hurt others: No Plan Nutrition Risks: No Nutritional Risk Meds Allergies Allergy/AdvReac Type Severity Reaction Status Date / Time No Known Allergies Allergy Verified 06/18/24 15:03 Active Medications: Current Medications Folic Acid (Folic Acid 1 Mg Tablet) [address] [facility] Octreotide Acetate 500 mcg/ (Sodium Chloride) 501 mls @ 50.1 mls/hr IVCONT .Q10H EMILY Last Admin: 06/18/24 23:50 Dose: 50 mcg/hr, 50.1 mls/hr Thiamine HCl 100 mg/ Sodium (Chloride) 101 mls @ 202 mls/hr IV DAILY [facility] Last Infusion: 06/19/24 00:26 Dose: Infused Albumin Human (Kedbumin 25 %) 100 mls @ 100 mls/hr IV DAILY [facility] Midodrine (Midodrine Hcl 2.5 Mg Tablet) 7.5 mg PO TID EMILY Last Admin: 06/18/24 23:51 Dose: 7.5 mg Multivitamins/Vitamin C (Multivitamin Tablet) [address] [facility] Ondansetron HCl (Ondansetron Hcl 4 Mg/2 Ml Vial) 4 mg IVPUSH Q8H PRN PRN Reason: Nausea and Vomiting Last Admin: 06/19/24 08:15 Dose: 4 mg Oxycodone HCl (Oxycodone Hcl Immed Release 5 Mg Tablet) 5 mg PO Q6H PRN PRN Reason: Pain, Severe (Pain Scale 7-10) Pantoprazole Sodium (Pantoprazole Sodium 40 Mg/10 Ml Vial) 40 mg IVPUSH BID@0630,1630 [facility] Last Admin: 06/18/24 23:50 Dose: 40 mg Sodium Chloride (0.9 % Sodium Chloride Flush 3 Ml Syringe) [address] [facility] Last Admin: 06/19/24 01:37 Dose: Not Given Home Medications ?Medication ?Instructions ?Recorded ?Confirmed ?Last Taken ?Type No Known Home Meds 06/19/24 06/19/24 Unknown History Physical Exam Vital Signs: Vital Signs: Last Vital Signs Temp 97.4 F 06/19/24 05:07 Pulse 105 H 06/19/24 05:07 Resp 14 06/19/24 05:07 BP 131/71 06/19/24 05:07 Pulse Ox 94 06/19/24 05:07 O2 Del Method Room Air 06/19/24 05:07 BMI result Body Mass Index 22.5 Const: General: no acute distress and ill appearing Nutritional Appearance: average body habitus Orientation/consciousness: patient oriented x3 HEENT: Head: Yes normal to inspection Ears: hearing grossly normal bilaterally Mouth: Normal oral and palatal mucosa present Eyes: Sclerae: scleral abnormal (Jaundice) Pupils: Equal, round and reactive pupils present Neck: Neck: Yes normal visual inspection Chest: Chest palpation & inspection: normal inspection of the chest Resp: Effort & Inspection: normal respiratory effort Auscultation: clear to auscultation bilaterally Cardio: Palpation: normal PMI Rate: regular rate Rhythm: regular rhythm Heart sounds: S1 normal heart sound present, S2 normal heart sound present and no murmurs GI: Inspection: Yes distended (Due to ascites) Palpation (GI): Soft to palpation, nontender and No hepatosplenomegaly present Auscultation: normal bowel sounds Rectal Exam - Male: Yes deferred Skin: General skin exam: no rashes or lesions noted and jaundice Neuro: General: patient oriented x3, gait normal and moves all extremities Cranial nerves: Yes Equal, round and reactive pupils present Extrem: General: Yes pedal edema (1+ pitting edema both lower extremities) Psych: Appearance: grossly normal Mental Status: mental status grossly normal Results Labs 06/19/24 04:26 06/19/24 04:27 Labs: Short CBC 06/18/24 06/19/24 06/19/24 Range/Units 15:58 00:25 04:26 WBC 27.2 H 26.2 H 29.9 H (4.8-10.8) X10*3/uL Hgb 11.5 L 11.8 L 11.2 L (14.0-18.0) g/dl Hct 33.0 L 31.9 L 30.8 L (42.0-52.0) % Plt Count 375 304 338 (160-400) X10*3/uL BMP 06/18/24 06/19/24 06/19/24 15:58 00:25 04:27 Sodium 124 L 127 L 127 L Potassium 3.8 3.8 3.9 Chloride 85 L 92 L 91 L Carbon Dioxide 28 23 25 BUN 28 H 29 H 30 H Creatinine 2.49 H 2.26 H 2.40 H Calcium 8.8 8.0 L D 8.3 L Liver Function 06/18/24 06/19/24 06/19/24 Range/Units 15:58 00:25 04:27 Total Bilirubin 17.7 H 15.7 H 15.8 H (0.0-1.0) mg/dL Direct Bilirubin 12.9 H (0.0-0.5) mg/dL AST 207 H 194 H 192 H (5-37) U/L ALT 86 H 76 H 78 H (0-40) U/L Alkaline Phosphatase 118 H 103 109 (39-117) U/L Albumin 2.3 L 2.0 L 2.1 L (3.5-5.0) g/dL Urine 06/18/24 Range/Units 22:08 Urine Color Dark Yellow Urine Appearance Cloudy Urine pH 5.0 (5.0-9.0) Ur Specific [place] 1.020 (1.005-1.025) Urine Protein 30 (1+) H (Neg-Trace) mg/dL Urine Glucose (UA) Negative (Negative) mg/dL Assessment and Plan (1) Alcoholic hepatitis with ascites: Status: Acute (2) Jaundice: Status: Acute Plan 48 YM with ETOH abuse admitted to [facility] on 06/18/24 with Jaundice, abdominal pain and distension for the past 3 weeks. Pt also complains of shortness of breath with exertion, nausea, vomiting (nonbloody), dizziness and rectal bleeding. He admits to decreased PO intak with wt loss from 160 to 152 lbs. Pt notes BRB in the stool for the past 2 weeks associated with rectal/anal discomfort He admits to drinking 6 packs of beer and some shots of hard liquor daily since his teenage years. Last time he drank alcohol was May 27. Pt likely has acute alcoholic hepatitis with possible cirrhosis complicated by ascites, renal insufficiency likely due to prerenal azotemia versus hepatorenal syndrome. Rectal bleeding is likely due to hemorrhoids. RECOMMENDATIONS: 1. Agree with CIWA protocol, IV pain medications, antiemetics and PPI 2. Check urine Na and Octrotide, Midodrine and IV albumin for HRS 3. Lactulose twice daily for hepatic encephalopathy/elevated ammonia levels 4. Further evaluation of rectal bleeding can be performed with colonoscopy can be performed once pt is more stable 5. Hold off steroids given leucocytosis and rectal bleeding (repeat LFTs today show improvement from yesterday) 6. Pt advised to quit drinking Procedures Date of Service Date of Service: 06/19/24
[2024-06-19 08:35] LABS: Amylase Peritoneal Fluid 91; Glucose Peritoneal Fluid 126; LDH Peritoneal Fluid 48; Total Protein Peritoneal Fluid 1.2
[2024-06-19 08:36] LABS: Albumin Peritoneal Fluid 0.6
--- NOTE | 2024-06-19 09:10 | HO.PM.IMPN ---
Subjective Subjective Date of Service: 06/19/24 Interval History: seen and examined reports abdominal pain and nausea with po analgesics Review of Systems Negative except HPI/interval history. Physical Exam Vital Signs: Vital Signs: Last Vital Signs Temp 97.4 F 06/19/24 05:07 Pulse 110 H 06/19/24 08:58 Resp 22 H 06/19/24 08:58 BP 111/87 06/19/24 08:58 Pulse Ox 98 06/19/24 08:58 O2 Del Method Nasal Cannula 06/19/24 08:58 O2 Flow Rate 2 06/19/24 08:58 BMI result Body Mass Index 22.5 Const: Other: General - no acute distress, appears comfortable; oriented x 3 Cardiovascular - regular rate and rhythm, S1-S2 Lungs - normal respiratory effort, clear to auscultation bilaterally, no wheezing Abdomen - soft, nontender, no rebound or guarding Extremities - no edema bilaterally Neuro - awake and alert, no focal deficits; oriented x3, but +asterixis Objective Data Active Medications Folic Acid (Folic Acid 1 Mg Tablet) 1 mg PO DAILY [facility] Octreotide Acetate 500 mcg/ (Sodium Chloride) 501 mls @ 50.1 mls/hr IVCONT .Q10H [facility] Last Admin: 06/18/24 23:50 Dose: 50 mcg/hr, 50.1 mls/hr Documented By: MADDI Thiamine HCl 100 mg/ Sodium (Chloride) 101 mls @ 202 mls/hr IV DAILY [facility] Last Infusion: 06/19/24 00:26 Dose: Infused Documented By: MADDI Albumin Human (Kedbumin 25 %) 100 mls @ 100 mls/hr IV DAILY [facility] Lactulose (Lactulose 20 Gm/30 Ml Solution) 20 gm PO BID [facility] Midodrine (Midodrine Hcl 2.5 Mg Tablet) 7.5 mg PO TID [facility] Last Admin: 06/18/24 23:51 Dose: 7.5 mg Documented By: MADDI Multivitamins/Vitamin C (Multivitamin Tablet) 1 tab PO DAILY [facility] Ondansetron HCl (Ondansetron Hcl 4 Mg/2 Ml Vial) 4 mg IVPUSH Q8H PRN PRN Reason: Nausea and Vomiting Last Admin: 06/19/24 08:15 Dose: 4 mg Documented By: IVELISSE Oxycodone HCl (Oxycodone Hcl Immed Release 5 Mg Tablet) 5 mg PO Q6H PRN PRN Reason: Pain, Severe (Pain Scale 7-10) Pantoprazole Sodium (Pantoprazole Sodium 40 Mg/10 Ml Vial) 40 mg IVPUSH BID@0630,1630 [facility] Last Admin: 06/18/24 23:50 Dose: 40 mg Documented By: MADDI Sodium Chloride (0.9 % Sodium Chloride Flush 3 Ml Syringe) 3 ml IVFLUSH QSHIFT [facility] Last Admin: 06/19/24 01:37 Dose: Not Given Documented By: MADDI Non-Admin Reason: IV Running Labs 06/19/24 04:26 06/19/24 04:27 Labs: Laboratory Results - last 24 hr 06/18/24 06/18/24 06/18/24 15:22 15:58 17:21 MCV 86.6 MCH 30.2 MCHC 34.9 RDW 15.0 Plt Count 375 MPV 10.9 Immature Gran % (Auto) Cancelled Neut % (Auto) Cancelled Lymph % (Auto) Cancelled [place] % (Auto) Cancelled Eos % (Auto) Cancelled Baso % (Auto) Cancelled Lymph # (Auto) Cancelled [place] # (Auto) Cancelled Eos # (Auto) Cancelled Baso # (Auto) Cancelled Abs Immat Gran (auto) Cancelled Absolute Neuts (auto) Cancelled Absolute Nucleated RBC 0.000 Nucleated RBC % (auto) 0.0 Neutrophils % (Manual) 87 H Band Neutrophils % 4 Lymphocytes % (Manual) 3 L Monocytes % (Manual) 6 Abs Neuts (Manual) 24.8 H Lymphocytes # (Manual) 0.8 L Monocytes # (Manual) 1.6 H Toxic Vacuolation PRESENT Platelet Estimate NORMAL Large Platelets PRESENT Plt Morphology Comment NOTED RBC Morphology NOTED Microcytosis 1+ (5-14) Target Cells 1+ (5-14) [place] Cells 1+ (0-2) PT 22.9 H INR 2.0 H Anion Gap 15 Estim Creat Clear Calc 36.2 Estimated GFR 28 Random Glucose 120 H Lactic Acid 1.7 Calcium 8.8 Magnesium 1.8 Total Bilirubin 17.7 H Direct Bilirubin 12.9 H AST 207 H ALT 86 H Alkaline Phosphatase 118 H Ammonia C-Reactive Protein 9.93 H B-Natriuretic Peptide 117 H Total Protein 8.2 H Albumin 2.3 L Lipase 445 H Urine Color Urine Appearance Urine pH Ur Specific [place] Urine Protein Urine Glucose (UA) Urine Ketones Urine Blood Urine Nitrite Ur Leukocyte Esterase Urine RBC Urine WBC Ur Squamous Epith Cells Urine Bacteria Hyaline Casts Granular Casts Ur Random Sodium Peritoneal WBC Peritoneal RBC [place] Neutrophils Periton Lymphocytes Peritoneal Monocytes Peritoneal Other Cells Peritoneal Tot Protein Peritoneal Albumin Peritoneal LDH Peritoneal Glucose Peritoneal Amylase Acetaminophen Ethyl Alcohol < 10 Hepatitis A IgM Ab Nonreactive Hep Bs Antigen Negative Hep Bs Antibody NONREACTIVE Hep B Core Total Ab Nonreactive Hepatitis C Ab (EIA) Nonreactive Influenza Type A (PCR) NEGATIVE Influenza Type B (PCR) NEGATIVE RSV RNA Qual (PCR) NEGATIVE SARS-CoV-2 RNA (RT-PCR) NEGATIVE Blood Type Antibody Screen Blood Bank Comment 06/18/24 06/18/24 06/18/24 17:56 18:07 20:14 MCV MCH MCHC RDW Plt Count MPV Immature Gran % (Auto) Neut % (Auto) Lymph % (Auto) [place] % (Auto) Eos % (Auto) Baso % (Auto) Lymph # (Auto) [place] # (Auto) Eos # (Auto) Baso # (Auto) Abs Immat Gran (auto) Absolute Neuts (auto) Absolute Nucleated RBC Nucleated RBC % (auto) Neutrophils % (Manual) Band Neutrophils % Lymphocytes % (Manual) Monocytes % (Manual) Abs Neuts (Manual) Lymphocytes # (Manual) Monocytes # (Manual) Toxic Vacuolation Platelet Estimate Large Platelets Plt Morphology Comment RBC Morphology Microcytosis Target Cells [place] Cells PT INR Anion Gap Estim Creat Clear Calc Estimated GFR Random Glucose Lactic Acid 1.2 Calcium Magnesium Total Bilirubin Direct Bilirubin AST ALT Alkaline Phosphatase Ammonia 103 H C-Reactive Protein B-Natriuretic Peptide Total Protein Albumin Lipase Urine Color Urine Appearance Urine pH Ur Specific [place] Urine Protein Urine Glucose (UA) Urine Ketones Urine Blood Urine Nitrite Ur Leukocyte Esterase Urine RBC Urine WBC Ur Squamous Epith Cells Urine Bacteria Hyaline Casts Granular Casts Ur Random Sodium Peritoneal WBC 0.220 Peritoneal RBC < 0.002 [place] Neutrophils 21 Periton Lymphocytes 16 Peritoneal Monocytes 32 Peritoneal Other Cells 31 Peritoneal Tot Protein 1.2 Peritoneal Albumin 0.6 Peritoneal LDH 48 Peritoneal Glucose 126 Peritoneal Amylase 91 Acetaminophen Ethyl Alcohol Hepatitis A IgM Ab Hep Bs Antigen Hep Bs Antibody Hep B Core Total Ab Hepatitis C Ab (EIA) Influenza Type A (PCR) Influenza Type B (PCR) RSV RNA Qual (PCR) SARS-CoV-2 RNA (RT-PCR) Blood Type A Positive Antibody Screen NEGATIVE Blood Bank Comment Technical 06/18/24 06/19/24 06/19/24 22:08 00:25 04:26 MCV 88.4 88.5 MCH 32.7 32.2 MCHC 37.0 H 36.4 H RDW 15.3 15.4 Plt Count 304 338 MPV 11.2 11.0 Immature Gran % (Auto) Neut % (Auto) Lymph % (Auto) [place] % (Auto) Eos % (Auto) Baso % (Auto) Lymph # (Auto) [place] # (Auto) Eos # (Auto) Baso # (Auto) Abs Immat Gran (auto) Absolute Neuts (auto) Absolute Nucleated RBC 0.000 0.000 Nucleated RBC % (auto) 0.0 0.0 Neutrophils % (Manual) Band Neutrophils % Lymphocytes % (Manual) Monocytes % (Manual) Abs Neuts (Manual) Lymphocytes # (Manual) Monocytes # (Manual) Toxic Vacuolation Platelet Estimate Large Platelets Plt Morphology Comment RBC Morphology Microcytosis Target Cells [place] Cells PT INR Anion Gap 16 Estim Creat Clear Calc 39.9 Estimated GFR 31 Random Glucose 98 Lactic Acid Calcium 8.0 L D Magnesium Total Bilirubin 15.7 H Direct Bilirubin AST 194 H ALT 76 H Alkaline Phosphatase 103 Ammonia C-Reactive Protein B-Natriuretic Peptide Total Protein 7.3 Albumin 2.0 L Lipase Urine Color Dark Yellow Urine Appearance Cloudy Urine pH 5.0 Ur Specific [place] 1.020 Urine Protein 30 (1+) H Urine Glucose (UA) Negative Urine Ketones Negative Urine Blood Negative Urine Nitrite Positive H Ur Leukocyte Esterase Small (1+) H Urine RBC >20 H Urine WBC 0-5 Ur Squamous Epith Cells 11-20 Urine Bacteria None Seen Hyaline Casts 11-20 Granular Casts Present Ur Random Sodium < 20.0 Peritoneal WBC Peritoneal RBC Periton Neutrophils Periton Lymphocytes Peritoneal Monocytes Peritoneal Other Cells Peritoneal Tot Protein Peritoneal Albumin Peritoneal LDH Peritoneal Glucose Peritoneal Amylase Acetaminophen < 3 Ethyl Alcohol Hepatitis A IgM Ab Hep Bs Antigen Hep Bs Antibody Hep B Core Total Ab Hepatitis C Ab (EIA) Influenza Type A (PCR) Influenza Type B (PCR) RSV RNA Qual (PCR) SARS-CoV-2 RNA (RT-PCR) Blood Type Antibody Screen Blood Bank Comment 06/19/24 04:27 MCV MCH MCHC RDW Plt Count MPV Immature Gran % (Auto) Neut % (Auto) Lymph % (Auto) [place] % (Auto) Eos % (Auto) Baso % (Auto) Lymph # (Auto) [place] # (Auto) Eos # (Auto) Baso # (Auto) Abs Immat Gran (auto) Absolute Neuts (auto) Absolute Nucleated RBC Nucleated RBC % (auto) Neutrophils % (Manual) Band Neutrophils % Lymphocytes % (Manual) Monocytes % (Manual) Abs Neuts (Manual) Lymphocytes # (Manual) Monocytes # (Manual) Toxic Vacuolation Platelet Estimate Large Platelets Plt Morphology Comment RBC Morphology Microcytosis Target Cells [place] Cells PT INR Anion Gap 15 Estim Creat Clear Calc 37.5 Estimated GFR 29 Random Glucose 84 Lactic Acid Calcium 8.3 L Magnesium 1.8 Total Bilirubin 15.8 H Direct Bilirubin AST 192 H ALT 78 H Alkaline Phosphatase 109 Ammonia C-Reactive Protein B-Natriuretic Peptide Total Protein 7.4 Albumin 2.1 L Lipase Urine Color Urine Appearance Urine pH Ur Specific [place] Urine Protein Urine Glucose (UA) Urine Ketones Urine Blood Urine Nitrite Ur Leukocyte Esterase Urine RBC Urine WBC Ur Squamous Epith Cells Urine Bacteria Hyaline Casts Granular Casts Ur Random Sodium Peritoneal WBC Peritoneal RBC Periton Neutrophils Periton Lymphocytes Peritoneal Monocytes Peritoneal Other Cells Peritoneal Tot Protein Peritoneal Albumin Peritoneal LDH Peritoneal Glucose Peritoneal Amylase Acetaminophen Ethyl Alcohol Hepatitis A IgM Ab Hep Bs Antigen Hep Bs Antibody Hep B Core Total Ab Hepatitis C Ab (EIA) Influenza Type A (PCR) Influenza Type B (PCR) RSV RNA Qual (PCR) SARS-CoV-2 RNA (RT-PCR) Blood Type Antibody Screen Blood Bank Comment Microbiology Microbiology Results: Microbiology 06/18/24 20:14 Gram Stain - Final Ascites Fluid Routine Culture - Preliminary No growth to date. Anaerobic Culture - Preliminary No growth to date. Assessment and Plan (1) Alcoholic hepatitis with ascites: Status: Acute Plan 48 yo M with heavy alcohol use who is admitted for: 1. Suspected acute alcoholic hepatitis / possible cirrhosis 1a. HIWOT, possibly due to HRS reports last drink 05/27 now with HIWOT concerning for HRS -- start on octreotide, midodrine, albumin GI and Nephrology consult elevated ammonia with +asterixis on exam (thought patient currently oriented fully) -- lactulose empiric IV PPI s/p paracentesis - not SBP by cell count 2. Question acute pancreatitis / abdominal pain noted CT abd IV analgsics and IVF GI input as above pt intolerant to oral analgesics -- will give low IV morphine judiciously in light HIWOT 3. Leukocytosis / ? sepsis UA positive for nitrites but no bacteremia empiric zosyn - renally dosed f/u cultures elevated bili / creatnine / INR are not due to severe sepsis but suspected due to primary liver/renal etiology 4. HypoNa likely due to #1 5. Alcohol abuse last drink 05/27 no signs of active withdrawal, monitor with CIWA at this time Full Code DVT pptx -- mechanical in light of rectal bleeding Quality Stroke Does the patient have a stroke diagnosis?: No VTE Prior VTE?: No VTE Risk Level:: Medical - moderate - high VTE Device Contraindication: N/A - Device Ordered VTE Drug Contraindication: Treatment Not Indicated
[2024-06-19] MEDS: Lidocaine HCl 1 % MPF 5 ML VIAL SUBCUT (09:39)
[2024-06-19] MEDS: 0.9 % Sodium Chloride Flush 3 ML SYRINGE IVFLUSH (10:00)
[2024-06-19] MEDS: Albumin Human 25 % 100 ML IV (10:00)
[2024-06-19] MEDS: Folic Acid 1 MG TABLET PO (10:02)
[2024-06-19] MEDS: Lactulose 20 GM/30 ML SOLUTION PO ×2 (10:02→21:14)
[2024-06-19] MEDS: Multivitamin TABLET 1 TAB PO (10:02)
[2024-06-19] MEDS: Octreotide Acetate 500 MCG in 0.9 % Sodium Chloride 500 ML 50.1 MCG IVCONT ×2 (10:03→20:59)
[2024-06-19] MEDS: Midodrine HCl 2.5 MG TABLET 7.5 MG PO ×3 (10:34→21:26)
--- NOTE | 2024-06-19 10:59 | PHA.MEDREC ---
Addendum entered by Jeanne Jeffery RPh 06/19/24 11:07: reviewed by [facility]. Original Note: Pharmacy Consult ? Medication Reconciliation Pharmacy has completed the medication reconciliation. Patient states he isn't on any medication at this time.
[2024-06-19 11:03] LABS: INTERNATIONAL NORM RATIO 1.9 (0.9-1.1); Prothrombin Time 21.6 SEC (10.9-12.4)
[2024-06-19] MEDS: Morphine Sulfate 2 MG/ML CARTRIDGE IVPUSH ×2 (11:27→18:11)
[2024-06-19] MEDS: Piperacillin Sodium/Tazobactam 2.25 GM in 0.9 % Sodium Chloride 50 ML IV ×2 (11:28→16:51)
--- NOTE | 2024-06-19 13:33 | MHC.CM.PN ---
Per [facility] [employer], [facility] 06/[facility]/2024.
--- NOTE | 2024-06-19 14:03 | PM.PROC ---
Brief Operative Note Date of procedure: 06/19/24 Pre-op diagnosis: Ascites Post-op diagnosis: same Procedure: US paracentesis 2.0 L yellow fluid removed. No immediate complications. Anesthesia: local
--- NOTE | 2024-06-19 14:29 | MHC.CM.PN ---
CM met with Patient at bedside. Patient lives in a 2 family hose with his Brother, who will transport at time of dc. Home/self care is the goal and CM has initiated and will follow for dc planning. Patient has no PCP( PCP brochure provided). CM will follow.
--- NOTE | 2024-06-19 14:33 | MHC.CM.PN ---
Per [facility] [employer] [facility] of 06/09/2024.
[2024-06-19] MEDS: Nicotine 14 MG PATCH.TD24 TRANSDERMA (16:51)
[2024-06-19] MEDS: Pantoprazole Sodium 40 MG/10 ML VIAL IVPUSH (16:51)
[2024-06-20] VITALS (13 sets, daily range): BP systolic 93–109; BP diastolic 52–69; PULSE 90–102; RESP 11–20; TEMP 36.3–36.7; O2SAT 94–97; BMI 23.5
[2024-06-20] MEDS: Piperacillin Sodium/Tazobactam 2.25 GM in 0.9 % Sodium Chloride 50 ML IV ×5 (00:26→22:35)
[2024-06-20] MEDS: Acetaminophen 1,000 MG/100 ML PIGGYBACK 400 MG IV (03:12)
--- NOTE | 2024-06-20 04:08 | PC.NURSE ---
Dr Resendiz notified of BP's running soft 93-96/50's, HR 90's, O2 Sat 9% on 2 LPM NC.
[2024-06-20 05:27] LABS: Hematocrit 27.3 % (42.0-52.0); Mean Corpuscular HGB Conc 36.6 g/dl (31.0-36.0); Mean Corpuscular Hemoglobin 32.7 pg (27.0-33.0); Mean Corpuscular Volume 89.2 fL (80.0-98.0); Mean Platelet Volume 11.3 fL (9.4-12.4); Platelet Count 277 X10*3/uL (160-400); Red Blood Count 3.06 X10*6/uL (4.60-5.80); Red Cell Distribution Width 15.7 % (11.0-16.0)
[2024-06-20 05:29] LABS: WBC ABN SCTR FOR CBC 1
[2024-06-20 05:31] LABS: Alanine Aminotransferase 69 U/L (0-40); Albumin Level 2.1 g/dL (3.5-5.0); Alkaline Phosphatase 98 U/L (39-117); Anion Gap 14 (12-20); Aspartate Amino Transferase 167 U/L (5-37); Bilirubin Total 14.5 mg/dL (0.0-1.0); Blood Urea Nitrogen 37 mg/dL (9-16); Calcium 7.7 mg/dL (8.4-10.2); Carbon Dioxide 23 mmol/L (22-29); Chloride 94 mmol/L (96-108); Creatinine Clr Calc Pharmacy 30.2; Estimated Glomerular Filt Rate 23; Glucose Random 133 mg/dL (60-115); Sodium 127 mmol/L (135-145); Total Protein 6.4 g/dL (6.5-8.0)
[2024-06-20 05:36] LABS: Prothrombin Time 23.9 SEC (10.9-12.4)
[2024-06-20] MEDS: Pantoprazole Sodium 40 MG/10 ML VIAL IVPUSH ×2 (05:50→16:35)
[2024-06-20] MEDS: Octreotide Acetate 500 MCG in 0.9 % Sodium Chloride 500 ML 50.1 MCG IVCONT ×2 (07:17→18:49)
[2024-06-20] MEDS: Albumin Human 25 % 100 ML IV ×3 (08:18→20:57)
[2024-06-20] MEDS: Multivitamin TABLET 1 TAB PO (08:19)
[2024-06-20] MEDS: Lactulose 20 GM/30 ML SOLUTION PO ×2 (08:20→21:06)
[2024-06-20] MEDS: Midodrine HCl 10 MG TABLET PO ×3 (08:20→20:50)
[2024-06-20] MEDS: Folic Acid 1 MG TABLET PO (08:20)
--- NOTE | 2024-06-20 09:00 | HO.PM.IMPN ---
Subjective Subjective Date of Service: 06/20/24 Interval History: seen and examined this AM reports abdominal pain improved after paracentesis reports fatigue and malaise reports poor appetite Review of Systems Negative except HPI/interval history. Physical Exam Vital Signs: Vital Signs: Last Vital Signs Temp 97.9 F 06/20/24 06:00 Pulse 90 06/20/24 07:17 Resp 18 06/20/24 07:17 BP 97/61 06/20/24 08:20 Pulse Ox 95 06/20/24 07:17 O2 Del Method Nasal Cannula 06/20/24 07:17 O2 Flow Rate 2 06/20/24 07:17 BMI result Body Mass Index 22.5 Const: Other: General - no acute distress, appears comfortable; oriented x 3, Cardiovascular - regular rate and rhythm, S1-S2 Lungs - normal respiratory effort, clear to auscultation bilaterally, no wheezing Abdomen - mildly distended with fluid thrill; mild ttp Extremities - +1 pedal edema Neuro - awake and alert, no focal deficits; oriented x3, but +asterixis, but improving Objective Data Active Medications Folic Acid (Folic Acid 1 Mg Tablet) 1 mg PO DAILY [facility] Last Admin: 06/20/24 08:20 Dose: 1 mg Documented By: ELÍAS Octreotide Acetate 500 mcg/ (Sodium Chloride) 501 mls @ 50.1 mls/hr IVCONT .Q10H [facility] Last Admin: 06/20/24 07:17 Dose: 50 mcg/hr, 50.1 mls/hr Documented By: ELÍAS Thiamine HCl 100 mg/ Sodium (Chloride) 101 mls @ 202 mls/hr IV DAILY [facility] Last Infusion: 06/19/24 00:26 Dose: Infused Documented By: MADDI Piperacillin Sod/Tazobactam (Sod 2.25 gm/ Sodium Chloride) 50 mls @ 100 mls/hr IV Q6H [facility] Last Infusion: 06/20/24 07:13 Dose: Infused Documented By: ELÍAS Albumin Human (Kedbumin 25 %) 100 mls @ 100 mls/hr IV Q6H [facility] Stop: 06/22/24 02:59 Last Admin: 06/20/24 08:18 Dose: 100 mls/hr Documented By: ELÍAS Lactulose (Lactulose 20 Gm/30 Ml Solution) 20 gm PO BID [facility] Last Admin: 06/20/24 08:20 Dose: 20 gm Documented By: ELÍAS Midodrine (Midodrine Hcl 10 Mg Tablet) 10 mg PO TID [facility] Last Admin: 06/20/24 08:20 Dose: 10 mg Documented By: ELÍAS Morphine Sulfate (Morphine Sulfate 2 Mg/Ml Cartridge) 2 mg IVPUSH Q6H PRN; Protocol PRN Reason: Pain, Severe (Pain Scale 7-10) Last Admin: 06/19/24 18:11 Dose: 2 mg Documented By: IVELISSE Multivitamins/Vitamin C (Multivitamin Tablet) 1 tab PO DAILY [facility] Last Admin: 06/20/24 08:19 Dose: 1 tab Documented By: ELÍAS Nicotine (Nicotine 14 Mg Patch.Td24) 14 mg TRANSDERMA DAILY [facility] Last Admin: 06/19/24 16:51 Dose: 14 mg Documented By: IVELISSE Ondansetron HCl (Ondansetron Hcl 4 Mg/2 Ml Vial) 4 mg IVPUSH Q8H PRN PRN Reason: Nausea and Vomiting Last Admin: 06/19/24 18:10 Dose: 4 mg Documented By: IVELISSE Oxycodone HCl (Oxycodone Hcl Immed Release 5 Mg Tablet) 5 mg PO Q6H PRN PRN Reason: Pain, Moderate(Pain Scale 4-6) Pantoprazole Sodium (Pantoprazole Sodium 40 Mg/10 Ml Vial) 40 mg IVPUSH BID@0630,1630 [facility] Last Admin: 06/20/24 05:50 Dose: 40 mg Documented By: LACHELLE Sodium Chloride (0.9 % Sodium Chloride Flush 3 Ml Syringe) 3 ml IVFLUSH QSHIFT [facility] Last Admin: 06/20/24 08:25 Dose: Not Given Documented By: ELÍAS Non-Admin Reason: IV Running Labs 06/20/24 03:56 06/20/24 03:56 Labs: Laboratory Results - last 24 hr 06/19/24 06/20/24 10:49 03:56 MCV 89.2 MCH 32.7 MCHC 36.6 H RDW 15.7 Plt Count 277 MPV 11.3 Absolute Nucleated RBC 0.000 Nucleated RBC % (auto) 0.0 PT 21.6 H 23.9 H INR 1.9 H 2.0 H Anion Gap 14 Estim Creat Clear Calc 30.2 Estimated GFR 23 Random Glucose 133 H Calcium 7.7 L D Total Bilirubin 14.5 H AST 167 H ALT 69 H Alkaline Phosphatase 98 Total Protein 6.4 L Albumin 2.1 L Microbiology Microbiology Results: Microbiology 06/18/24 Unknown Urine Culture - Final Urine clean catch - Clean Catch Midstream No growth. 06/18/24 20:14 Gram Stain - Final Ascites Fluid Routine Culture - Preliminary No growth to date. Anaerobic Culture - Preliminary No growth to date. 06/18/24 17:56 Blood Culture - Preliminary Blood - Venous No growth after 24 hours. 06/18/24 17:56 Blood Culture - Preliminary Blood - Venous No growth after 24 hours. Assessment and Plan (1) Alcoholic hepatitis with ascites: Status: Acute Plan 48 yo M with heavy alcohol use who is admitted for: 1. Suspected acute alcoholic hepatitis / possible cirrhosis 1a. HIWOT, possibly due to HRS - SCr rising today 1b. hepatic encephalopathy -- still with asterixis on exam reports last drink 05/27 started on octreotide, midodrine(increase to 10mg TID), albumin - will increase to q6h x 8 doses GI appreciated - see notes for full details lactulose Nephrology consult pending empiric IV PPI s/p paracentesis - not SBP by cell count 2. Question acute pancreatitis / abdominal pain noted CT abd IV analgsics and IVF GI input as above pain improving post paracentesis on solids -- no worsening of pain this AM 3. Leukocytosis / ? sepsis UA positive for nitrites but no bacteruria empiric zosyn - renally dosed f/u cultures elevated bili / creatnine / INR are not due to severe sepsis but suspected due to primary liver/renal etiology 4. HypoNa likely due to #1 5. Alcohol abuse last drink 05/27 no signs of active withdrawal, monitor with CIWA at this time Full Code DVT pptx -- mechanical in light of rectal bleeding Quality Stroke Does the patient have a stroke diagnosis?: No VTE Prior VTE?: No VTE Risk Level:: Medical - moderate - high VTE Device Contraindication: N/A - Device Ordered VTE Drug Contraindication: Treatment Not Indicated
--- NOTE | 2024-06-20 10:14 | PM.CNNEP ---
History of Present Illness Reason for Consult Consult date: 06/20/24 Reason for consult: HIWOT Chief Complaint Chief complaint: Liver failure, rectal bleeding History of Present Illness Narrative: 48 years old man with past medical history is or alcohol abuse presents to the emergency department complaining of worsening generalized abdominal pain over the last couple of days associated with increased abdominal girth, shortness of breath with exertion, nausea, vomiting (nonbloody) and rectal bright red bleeding. He is not aware that his skin and sclerae have yellowish tint. He denied chest pain, headache, palpitations or dizziness. Denies fevers chills. Last time he drank alcohol was May 27. He denied tobacco smoking or illicit drug use. He takes Tylenol very occasionally. He does not take any medication daily. Baseline renal function is unknown. Review of Systems Constitutional: Denies fever(s) and Denies weight loss Cardiovascular: Denies chest pain Respiratory: Denies cough and Denies hemoptysis Gastrointestinal: Denies diarrhea and Denies nausea Musculoskeletal: Denies back pain Denies focal weakness PMFSH Social History Social History Alcohol intake: current Alcohol intake frequency: a few times a week Alcohol type: beer and hard liquor Patient Tobacco Use Status: Never used Tobacco Smoked in Last 30 Days: Yes Use of substances other than those prescribed or required for medical reasons: Yes Substance Use Type: Marijuana Substance Use Frequency: Occasionally Advance Directives: No Advance Directives Information Provided: Yes Do you have a plan to hurt others: No Plan Nutrition Risks: No Nutritional Risk service: No Meds Allergies Allergy/AdvReac Type Severity Reaction Status Date / Time No Known Allergies Allergy Verified 06/18/24 15:03 Active Medications: Current Medications Folic Acid (Folic Acid 1 Mg Tablet) 1 mg PO DAILY [facility] Last Admin: 06/20/24 08:20 Dose: 1 mg Octreotide Acetate 500 mcg/ (Sodium Chloride) 501 mls @ 50.1 mls/hr IVCONT .Q10H [facility] Last Admin: 06/20/24 07:17 Dose: 50 mcg/hr, 50.1 mls/hr Thiamine HCl 100 mg/ Sodium (Chloride) 101 mls @ 202 mls/hr IV DAILY [facility] Last Infusion: 06/19/24 00:26 Dose: Infused Piperacillin Sod/Tazobactam (Sod 2.25 gm/ Sodium Chloride) 50 mls @ 100 mls/hr IV Q6H [facility] Last Infusion: 06/20/24 07:13 Dose: Infused Albumin Human (Kedbumin 25 %) 100 mls @ 100 mls/hr IV Q6H [facility] Stop: 06/22/24 02:59 Last Admin: 06/20/24 08:18 Dose: 100 mls/hr Lactulose (Lactulose 20 Gm/30 Ml Solution) 20 gm PO BID [facility] Last Admin: 06/20/24 08:20 Dose: 20 gm Midodrine (Midodrine Hcl 10 Mg Tablet) 10 mg PO TID [facility] Last Admin: 06/20/24 08:20 Dose: 10 mg Morphine Sulfate (Morphine Sulfate 2 Mg/Ml Cartridge) 2 mg IVPUSH Q6H PRN; Protocol PRN Reason: Pain, Severe (Pain Scale 7-10) Last Admin: 06/19/24 18:11 Dose: 2 mg Multivitamins/Vitamin C (Multivitamin Tablet) 1 tab PO DAILY [facility] Last Admin: 06/20/24 08:19 Dose: 1 tab Nicotine (Nicotine 14 Mg Patch.Td24) 14 mg TRANSDERMA DAILY [facility] Last Admin: 06/19/24 16:51 Dose: 14 mg Ondansetron HCl (Ondansetron Hcl 4 Mg/2 Ml Vial) 4 mg IVPUSH Q8H PRN PRN Reason: Nausea and Vomiting Last Admin: 06/19/24 18:10 Dose: 4 mg Oxycodone HCl (Oxycodone Hcl Immed Release 5 Mg Tablet) 5 mg PO Q6H PRN PRN Reason: Pain, Moderate(Pain Scale 4-6) Pantoprazole Sodium (Pantoprazole Sodium 40 Mg/10 Ml Vial) 40 mg IVPUSH BID@0630,1630 [facility] Last Admin: 06/20/24 05:50 Dose: 40 mg Sodium Chloride (0.9 % Sodium Chloride Flush 3 Ml Syringe) 3 ml IVFLUSH QSHIFT [facility] Last Admin: 06/20/24 08:25 Dose: Not Given Home Medications ?Medication ?Instructions ?Recorded ?Confirmed ?Last Taken ?Type No Known Home Meds 06/19/24 06/19/24 Unknown History Physical Exam Vital Signs: Last Vital Signs Temp 97.9 F 06/20/24 06:00 Pulse 90 06/20/24 07:17 Resp 18 06/20/24 07:17 BP 97/61 06/20/24 08:20 Pulse Ox 95 06/20/24 07:17 O2 Del Method Nasal Cannula 06/20/24 07:17 O2 Flow Rate 2 06/20/24 07:17 BMI result Body Mass Index 22.5 Const Other: Icteric General: ill appearing Neck Neck: Yes supple Resp Auscultation: clear to auscultation bilaterally Cardio Palpation: no palpable S3 Heart sounds: no rubs GI Inspection: Yes distended Auscultation: normal bowel sounds Neuro Motor exam (neuro): no asterixis Results Lab Results 06/20/24 03:56 06/20/24 03:56 Lab results: Chemistry 06/18/24 06/19/24 06/19/24 15:58 00:25 04:27 Sodium 124 L 127 L 127 L Potassium 3.8 3.8 3.9 Carbon Dioxide 28 23 25 BUN 28 H 29 H 30 H Creatinine 2.49 H 2.26 H 2.40 H Calcium 8.8 8.0 L D 8.3 L 06/20/24 03:56 Sodium 127 L Potassium 4.0 Carbon Dioxide 23 BUN 37 H Creatinine 2.98 H Calcium 7.7 L D Hematology 06/18/24 06/19/24 06/19/24 15:58 00:25 04:26 WBC 27.2 H 26.2 H 29.9 H Hgb 11.5 L 11.8 L 11.2 L Plt Count 375 304 338 06/20/24 03:56 WBC 25.0 H Hgb 10.0 L Plt Count 277 Urinalysis 06/18/24 22:08 Urine Color Dark Yellow Urine Appearance Cloudy Urine pH 5.0 Ur Specific [place] 1.020 Urine Protein 30 (1+) H Urine Glucose (UA) Negative Urine Ketones Negative Urine Blood Negative Urine Nitrite Positive H Ur Leukocyte Esterase Small (1+) H Urine RBC >20 H Urine WBC 0-5 Ur Squamous Epith Cells 11-20 Hyaline Casts 11-20 Assessment and Plan (1) Alcoholic hepatitis with ascites: Status: Acute (2) Hyponatremia: Status: Acute (3) Acute kidney injury: Status: Acute Plan Acute kidney injury and hyponatremia in the setting of alcoholic liver injury. Lazaro has hepatorenal syndrome. Recommendation Cautious IV hydration with normal saline at 50 cc/hour. Agree with octreotide and midodrine. Maintain systolic blood pressure more than 90 mm Hg. Monitor urine output closely. Restrict oral free water intake. Avoid nephrotoxic agents including NSAIDs. No absolute indication for dialysis yet. Overall prognosis remains guarded Procedures Date of Service Date of Service: 06/20/24
[2024-06-20] MEDS: Nicotine 14 MG PATCH.TD24 TRANSDERMA (10:41)
[2024-06-20] MEDS: Thiamine HCL 100 MG in 0.9 % Sodium Chloride 100 ML 202 MG IV (10:43)
[2024-06-20] MEDS: ondansetron HCL 4 MG/2 ML VIAL IVPUSH ×3 (10:45→20:50)
[2024-06-20] MEDS: Morphine Sulfate 2 MG/ML CARTRIDGE IVPUSH ×3 (10:45→20:50)
--- NOTE | 2024-06-20 13:50 | P.CDIM_ITS ---
PROVIDER RESPONSE TEXT: To clarify, the appropriate diagnosis supported by the clinical indicators: Ascites: Due to alcoholic hepatitis, possibly underlying cirrhosis QUERY TEXT: PHYSICIAN'S DOCUMENTATION REQUEST Date of Query: 06/20/2024 12:31 PM EST Patient Name: Santy Hernandez Admit Date: 06/19/2024 Dear Teofilo Knutson MD, A review of the medical record indicates additional documentation may be needed. Please review below and update the documentation accordingly. Clinical Indicators: The following diagnoses of ascites was documented within a CT scan: CT Abdomen/pelvis dated 06/18 - Impression: Mild liver surface contour abnormality concerning for cirr hosis. Moderate free fluid in the abdomen and pelvis as can be seen with ascites. Ascites cirrhosis (alcoholic), hepatitis, malignant etc. Ascites due to other cause please specify if known Other (explain) Clinically unable to determine (explain) Thank you, Yarelis Messina, CCS, CDIS Use of terms such as suspected, likely, concern for, or probable (associated with a specific diagnosi s that is being evaluated, monitored, or treated as if it exists) are acceptable and can be coded in the inpatient se tting, when documented at the time of discharge. Please use your independent medical judgment in providing your response. THIS QUERY IS PART OF THE PERMANENT MEDICAL RECORD
[2024-06-20] MEDS: 0.9 % Sodium Chloride 1,000 ML 50 ML IVCONT (14:44)
[2024-06-21] VITALS (7 sets, daily range): BP systolic 105–135; BP diastolic 56–62; PULSE 98–109; RESP 18–20; TEMP 36.3–36.7; O2SAT 92–96
[2024-06-21 00:34] LABS: Sodium Urine Random < 20.0 mmol/L
[2024-06-21] MEDS: Albumin Human 25 % 100 ML IV ×4 (03:01→20:07)
[2024-06-21] MEDS: Octreotide Acetate 500 MCG in 0.9 % Sodium Chloride 500 ML 50.1 MCG IVCONT ×2 (06:08→22:16)
[2024-06-21] MEDS: Piperacillin Sodium/Tazobactam 2.25 GM in 0.9 % Sodium Chloride 50 ML IV ×4 (06:08→22:20)
[2024-06-21] MEDS: Pantoprazole Sodium 40 MG/10 ML VIAL IVPUSH ×2 (06:08→16:01)
--- NOTE | 2024-06-21 06:16 | PC.NURSE ---
patient reports hiccups x 3 days causing nausea
--- NOTE | 2024-06-21 09:17 | P.PNIM_ITS ---
Subjective Subjective Date of Service: 06/21/24 <Ernestina Arriaza NP - Last Filed: 06/21/24 13:18> 06/22/24 <Teofilo Knutson MD - Last Filed: 06/22/24 12:45> Interval History: seen and examined this AM reports abdominal pain improved after paracentesis reports fatigue and malaise reports poor appetite with nausea <Ernestina Arriaza NP - Last Filed: 06/21/24 13:18> Review of Systems Negative except HPI/interval history. <Ernestina Arriaza NP - Last Filed: 06/21/24 13:18> Physical Exam 2 Vital Signs: Vital Signs: Last Vital Signs Temp 98.1 F 06/21/24 07:31 Pulse 109 H 06/21/24 07:31 Resp 18 06/21/24 07:31 BP 112/62 06/21/24 07:31 Pulse Ox 93 06/21/24 07:31 O2 Del Method Nasal Cannula 06/21/24 07:31 O2 Flow Rate 2.5 06/21/24 07:31 BMI result Body Mass Index 23.5 <Ernestina Arriaza NP - Last Filed: 06/21/24 13:18> Appearing in no acute distress Jaundice lung sounds are clear to auscultation heart regular rate rhythm, clear S1, S2 positive bowel sounds, abdomen is soft, nontender neuro patient is alert x3, no focal deficits <Ernestina Arriaza NP - Last Filed: 06/21/24 13:18> Objective Data Active Medications Folic Acid (Folic Acid 1 Mg Tablet) 1 mg PO DAILY [facility] Last Admin: 06/20/24 08:20 Dose: 1 mg Documented By: ELÍAS Octreotide Acetate 500 mcg/ (Sodium Chloride) 501 mls @ 50.1 mls/hr IVCONT .Q10H [facility] Last Admin: 06/21/24 06:08 Dose: 50 mcg/hr, 50.1 mls/hr Documented By: DELMIS Thiamine HCl 100 mg/ Sodium (Chloride) 101 mls @ 202 mls/hr IV DAILY [facility] Last Infusion: 06/20/24 11:47 Dose: Infused Documented By: ELÍAS Piperacillin Sod/Tazobactam (Sod 2.25 gm/ Sodium Chloride) 50 mls @ 100 mls/hr IV Q6H [facility] Last Infusion: 06/21/24 06:45 Dose: Infused Documented By: DELMIS Albumin Human (Kedbumin 25 %) 100 mls @ 100 mls/hr IV Q6H [facility] Stop: 06/22/24 02:59 Last Infusion: 06/21/24 05:08 Dose: Infused Documented By: DELMIS Sodium Chloride (Ns) 1,000 mls @ 50 mls/hr IVCONT .Q20H [facility] Last Admin: 06/20/24 14:44 Dose: 50 mls/hr Documented By: TELMAYM Lactulose (Lactulose 20 Gm/30 Ml Solution) 20 gm PO BID [facility] Last Admin: 06/20/24 21:06 Dose: 20 gm Documented By: EVAN Midodrine (Midodrine Hcl 10 Mg Tablet) 10 mg PO TID [facility] Last Admin: 06/20/24 20:50 Dose: 10 mg Documented By: EVAN Morphine Sulfate (Morphine Sulfate 2 Mg/Ml Cartridge) 2 mg IVPUSH Q6H PRN; Protocol PRN Reason: Pain, Severe (Pain Scale 7-10) Last Admin: 06/20/24 20:50 Dose: 2 mg Documented By: EVAN Multivitamins/Vitamin C (Multivitamin Tablet) 1 tab PO DAILY [facility] Last Admin: 06/20/24 08:19 Dose: 1 tab Documented By: ELÍAS Nicotine (Nicotine 14 Mg Patch.Td24) 14 mg TRANSDERMA DAILY [facility] Last Admin: 06/20/24 10:41 Dose: 14 mg Documented By: ELÍAS Ondansetron HCl (Ondansetron Hcl 4 Mg/2 Ml Vial) 4 mg IVPUSH Q8H PRN PRN Reason: Nausea and Vomiting Last Admin: 06/20/24 20:50 Dose: 4 mg Documented By: EVAN Oxycodone HCl (Oxycodone Hcl Immed Release 5 Mg Tablet) 5 mg PO Q6H PRN PRN Reason: Pain, Moderate(Pain Scale 4-6) Pantoprazole Sodium (Pantoprazole Sodium 40 Mg/10 Ml Vial) 40 mg IVPUSH BID@0630,1630 [facility] Last Admin: 06/21/24 06:08 Dose: 40 mg Documented By: DELMIS Sodium Chloride (0.9 % Sodium Chloride Flush 3 Ml Syringe) 3 ml IVFLUSH QSHIFT [facility] Last Admin: 06/21/24 03:06 Dose: Not Given Documented By: DELMIS Non-Admin Reason: IV Running <Ernestina Arriaza NP - Last Filed: 06/21/24 13:18> Labs CBC & Chem 7: 06/22/24 10:02 06/22/24 10:02 <Ernestina Arriaza NP - Last Filed: 06/21/24 13:18> Labs: Laboratory Results - last 24 hr 06/20/24 23:15 Ur Random Sodium < 20.0 <Ernestina Arriaza NP - Last Filed: 06/21/24 13:18> Microbiology Microbiology Results: Microbiology 06/18/24 20:14 Gram Stain - Final Ascites Fluid Routine Culture - Final No growth after 2 days Anaerobic Culture - Preliminary No growth to date. 06/18/24 17:56 Blood Culture - Preliminary Blood - Venous No growth after 48 hours. 06/18/24 17:56 Blood Culture - Preliminary Blood - Venous No growth after 48 hours. 06/18/24 Unknown Urine Culture - Final Urine clean catch - Clean Catch Midstream No growth. <Ernestina Arriaza NP - Last Filed: 06/21/24 13:18> Assessment and Plan (1) Alcoholic hepatitis with ascites: Status: Acute <Ernestina Arriaza NP - Last Filed: 06/21/24 13:18> Assessment and Plan: 48 yo M with heavy alcohol use who is admitted for Suspected acute alcoholic hepatitis / possible cirrhosis 1a. HIWOT, possibly due to HRS>SCr rising today 1b. hepatic encephalopathy>still with asterixis on exam reports last drink 05/27 started on octreotide, midodrine(increase to 10mg TID), albumin q6h x 8 doses lactulose, unable to keep down due to nausea Nephrology consult> no indication for dialysis yet, fluids at 50ml/hr empiric IV PPI s/p paracentesis>not SBP by cell count GI appreciated>consider discussion with [facility] for liver specialist ? possible tx MELD 37 Rectal bleeding no further episodes stable HH INR 2.0 Nausea and vomiting unable to keep much down including medications may need NGT placed Question acute pancreatitis / abdominal pain noted CT abd IV analgsics and IVF GI input as above pain improving post paracentesis back on clears due to NV Leukocytosis UA positive for nitrites but no bacteruria empiric zosyn >renally dosed f/u cultures neg elevated bili / creatinine / INR are not due to severe sepsis but suspected due to primary liver/renal etiology HypoNa likely due to #1 Alcohol abuse last drink 05/27 no signs of active withdrawal, monitor with CIWA at this time Full Code DVT pptx -- mechanical in light of rectal bleeding <Ernestina Arriaza NP - Last Filed: 06/21/24 13:18> Quality Stroke Does the patient have a stroke diagnosis?: No <Ernestina Arriaza NP - Last Filed: 06/21/24 13:18> VTE Prior VTE?: No <Ernestina Arriaza NP - Last Filed: 06/21/24 13:18> VTE Risk Level:: Medical - moderate - high <Ernestina Arriaza NP - Last Filed: 06/21/24 13:18> VTE Device Contraindication: N/A - Device Ordered <Ernestina Arriaza NP - Last Filed: 06/21/24 13:18> VTE Drug Contraindication: Treatment Not Indicated <Ernestina Arriaza NP - Last Filed: 06/21/24 13:18>
[2024-06-21 09:43] LABS: Hematocrit 25.4 % (42.0-52.0); Hemoglobin 9.3 g/dl (14.0-18.0); Mean Corpuscular HGB Conc 36.6 g/dl (31.0-36.0); Mean Corpuscular Hemoglobin 33.1 pg (27.0-33.0); Mean Corpuscular Volume 90.4 fL (80.0-98.0); Mean Platelet Volume 11.2 fL (9.4-12.4); Platelet Count 251 X10*3/uL (160-400); Red Blood Count 2.81 X10*6/uL (4.60-5.80); Red Cell Distribution Width 15.9 % (11.0-16.0); White Blood Count 19.9 X10*3/uL (4.8-10.8)
[2024-06-21] MEDS: ondansetron HCL 4 MG/2 ML VIAL IVPUSH ×2 (09:45→20:06)
[2024-06-21] MEDS: Nicotine 14 MG PATCH.TD24 TRANSDERMA (09:45)
[2024-06-21] MEDS: Morphine Sulfate 2 MG/ML CARTRIDGE IVPUSH ×3 (09:45→22:15)
[2024-06-21] MEDS: 0.9 % Sodium Chloride Flush 3 ML SYRINGE IVFLUSH ×3 (09:46→20:15)
[2024-06-21 09:47] LABS: Ammonia 115 umol/L (13-55)
[2024-06-21] MEDS: Thiamine HCL 100 MG in 0.9 % Sodium Chloride 100 ML 202 MG IV (09:47)
[2024-06-21 09:56] LABS: Alanine Aminotransferase 53 U/L (0-40); Albumin Level 3.1 g/dL (3.5-5.0); Alkaline Phosphatase 74 U/L (39-117); Anion Gap 15 (12-20); Aspartate Amino Transferase 119 U/L (5-37); Bilirubin Direct 10.5 mg/dL (0.0-0.5); Bilirubin Total 14.6 mg/dL (0.0-1.0); Blood Urea Nitrogen 41 mg/dL (9-16); Calcium 8.8 mg/dL (8.4-10.2); Carbon Dioxide 22 mmol/L (22-29); Chloride 99 mmol/L (96-108); Creatinine Clr Calc Pharmacy 25.4; Estimated Glomerular Filt Rate 18; Glucose Random 85 mg/dL (60-115); Potassium 3.6 mmol/L (3.3-5.1); Sodium 132 mmol/L (135-145)
--- NOTE | 2024-06-21 11:38 | P.PNGI_ITS ---
Subjective Subjective Date of Service: 06/21/24 Interval History: He is feeling wheezy no abdominal pain feels constipated he has nausea mild asterixis but he is mental alert Critical Care Time (minutes): 0 Physical Exam 2 Vital Signs: Vital Signs: Last Vital Signs Temp 98.1 F 06/21/24 10:58 Pulse 105 H 06/21/24 10:58 Resp 18 06/21/24 10:58 BP 105/57 L 06/21/24 10:58 Pulse Ox 93 06/21/24 10:58 O2 Del Method Nasal Cannula 06/21/24 10:58 O2 Flow Rate 2.5 06/21/24 10:58 BMI result Body Mass Index 23.5 EXAM: GENERAL: The patient is jaundiced VITAL SIGNS:see workflow HEENT: icteric sclerae, PERRLA, EOMI. Oropharynx clear. Moist mucous membranes. Conjunctivae appear well perfused. No thyroid mass. CHEST: Chest wall is nontender. HEART: Regular rate and rhythm without murmurs. LUNGS: b/l wheeze ABDOMEN: Soft, positive bowel sounds, distended diffusely tender, no organomegaly.no flank tenderness SKIN: No rash, no excessive bruising, petechiae, or purpura. NEUROLOGIC: Cranial nerves II-XII intact without motor/sensory deficit. mild asterixis Psych: normal affect Psych: Mental Status: mental status grossly normal Objective Data Labs 06/21/24 09:34 06/21/24 09:34 Labs: Laboratory Results - last 24 hr 06/20/24 06/21/24 23:15 09:34 WBC 19.9 H RBC 2.81 L Hgb 9.3 L Hct 25.4 L MCV 90.4 MCH 33.1 H MCHC 36.6 H RDW 15.9 Plt Count 251 MPV 11.2 Absolute Nucleated RBC 0.000 Nucleated RBC % (auto) 0.0 Sodium 132 L Potassium 3.6 Chloride 99 Carbon Dioxide 22 Anion Gap 15 BUN 41 H Creatinine 3.62 H Estim Creat Clear Calc 25.4 Estimated GFR 18 Random Glucose 85 Calcium 8.8 D Total Bilirubin 14.6 H Direct Bilirubin 10.5 H AST 119 H ALT 53 H Alkaline Phosphatase 74 Ammonia 115 H Total Protein 7.0 Albumin 3.1 L Ur Random Sodium < 20.0 Microbiology Microbiology Results: Microbiology 06/18/24 20:14 Ascites Fluid Gram Stain - Final 06/18/24 20:14 Ascites Fluid Routine Culture - Final No growth after 2 days 06/18/24 20:14 Ascites Fluid Anaerobic Culture - Preliminary No growth to date. 06/18/24 17:56 Blood - Venous Blood Culture - Preliminary No growth after 48 hours. 06/18/24 17:56 Blood - Venous Blood Culture - Preliminary No growth after 48 hours. 06/18/24 Unknown Urine clean catch - Clean Catch Midstream Urine Culture - Final No growth. Procedures Date of Service Date of Service: 06/21/24 Progress Note: A&P Assessment and plan (1) Alcoholic hepatitis with ascites: Status: Acute Plan 1/ Alcoholic hepatitis with ascites and presumed HRS-HIWOT. Initial para neg for SBP, ur Na <10 2/ Possible pneumonia, receiving zosyn 3/ constipation and poor PO intake 4/ Anemia without overt GIB but pos fluid balance PLAN: 1/ Consider re evaluation for treatment for pneumonia and repeat CXR, check bnp 2/ cont with albumin, octreotide and midodrine for the moment -appreciate renal input 3/ encourage PO diet, high protein, to treat catabolic state 4/ recommend transfer to liver unit if no improvement, for possible liver transplant eval 5/ hold on EGD for the moment MELD 3.0= 37- prognosis is guarded Time Spent With Patient Time: Total time managing care of this patient today ____ minutes. Quality Stroke Does the patient have a stroke diagnosis?: No VTE Prior VTE?: No VTE Risk Level:: Medical - moderate - high VTE Device Contraindication: N/A - Device Ordered VTE Drug Contraindication: Treatment Not Indicated
--- NOTE | 2024-06-21 12:21 | P.PNNP_ITS ---
Subjective Subjective Date of Service: 06/21/24 Interval history: Events noted. Ill-appearing Physical Exam 2 Vital Signs: Vital Signs: Last Vital Signs Temp 98.1 F 06/21/24 10:58 Pulse 105 H 06/21/24 10:58 Resp 18 06/21/24 10:58 BP 105/57 L 06/21/24 10:58 Pulse Ox 93 06/21/24 10:58 O2 Del Method Nasal Cannula 06/21/24 10:58 O2 Flow Rate 2.5 06/21/24 10:58 BMI result Body Mass Index 23.5 Const: General: ill appearing Neck: Neck: Yes supple Resp: Auscultation: clear to auscultation bilaterally Cardio: Palpation: no palpable S3 Heart sounds: no rubs GI: Palpation (GI): Soft to palpation Auscultation: normal bowel sounds Neuro: Motor exam (neuro): no asterixis Objective Data Labs 06/22/24 10:02 06/22/24 10:02 Labs: Laboratory Results - last 24 hr 06/20/24 06/21/24 23:15 09:34 WBC 19.9 H RBC 2.81 L Hgb 9.3 L Hct 25.4 L MCV 90.4 MCH 33.1 H MCHC 36.6 H RDW 15.9 Plt Count 251 MPV 11.2 Absolute Nucleated RBC 0.000 Nucleated RBC % (auto) 0.0 Sodium 132 L Potassium 3.6 Chloride 99 Carbon Dioxide 22 Anion Gap 15 BUN 41 H Creatinine 3.62 H Estim Creat Clear Calc 25.4 Estimated GFR 18 Random Glucose 85 Calcium 8.8 D Total Bilirubin 14.6 H Direct Bilirubin 10.5 H AST 119 H ALT 53 H Alkaline Phosphatase 74 Ammonia 115 H Total Protein 7.0 Albumin 3.1 L Ur Random Sodium < 20.0 Microbiology Microbiology Results: Microbiology 06/18/24 20:14 Ascites Fluid Gram Stain - Final 06/18/24 20:14 Ascites Fluid Routine Culture - Final No growth after 2 days 06/18/24 20:14 Ascites Fluid Anaerobic Culture - Preliminary No growth to date. 06/18/24 17:56 Blood - Venous Blood Culture - Preliminary No growth after 48 hours. 06/18/24 17:56 Blood - Venous Blood Culture - Preliminary No growth after 48 hours. 06/18/24 Unknown Urine clean catch - Clean Catch Midstream Urine Culture - Final No growth. Procedures Date of Service Date of Service: 06/22/24 Assessment & Plan Assessment and plan (1) Alcoholic hepatitis with ascites: Status: Acute (2) Hyponatremia: Status: Acute (3) Acute kidney injury: Status: Acute Plan Acute kidney injury and hyponatremia in the setting of alcoholic liver injury. Lazaro has hepatorenal syndrome. Renal function continues to worsen Recommendation Cautious IV hydration with normal saline at 50 cc/hour. Agree with octreotide and midodrine. Maintain systolic blood pressure more than 90 mm Hg. Monitor urine output closely. Restrict oral free water intake. Avoid nephrotoxic agents including NSAIDs. No absolute indication for dialysis yet. Overall prognosis remains guarded Time Spent With Patient Time: Total time managing care of this patient today ____ minutes. Progress Note: Quality Stroke Does the patient have a stroke diagnosis?: No
--- NOTE | 2024-06-21 13:20 | P.CDIM_ITS ---
PROVIDER RESPONSE TEXT: To clarify, the appropriate diagnosis supported by the clinical indicators: Pneumonitis, after study has been ruled out QUERY TEXT: PHYSICIAN'S DOCUMENTATION REQUEST Date of Query: 06/21/2024 11:53 AM EST Patient Name: Santy Hernandez Admit Date: 06/19/2024 Dear Ernestina Arriaza QUESTIONED DOCUMENTS EXAMINER, A review of the medical record indicates additional documentation may be needed. Please review below and update the documentation accordingly. Clinical Indicators: H&P 06/18/24 - CXR showed finding consistent with pneumonitis. Ed: A chest xray was done more to look for a possible source of his elevated white count than because of symptoms of pneumonia. I was somewhat surprised that the x-ray was read as showing signs of pneumonitis. Patient will be covered with antibiotics, ceftriaxone and azithromycin. CXR - Low lung volumes atelectasis/pneumonitis. Infectious inflammatory etiologies are favored by hilario ging given the asymmetry, right worse than left. Impression: Nonspecific pulmonary opacities, right worse than left. Differenti al considerations pneumonitis and/or pneumonia. Based on the above, could you clarify in the Progress Notes further specificity regarding specifics t o the noted Pneumonitis documented within the medical record: Pneumonitis Please indicate substance such as food or vomitus, oils, or other solids or liquids, chemical, aspira tion, drug induced, interstitial, noninfectious etc. Pneumonitis, after study has been ruled out Other (explain) Clinically unable to determine (explain) Thank you, Yarelis Messina, CCS, CDIS Use of terms such as suspected, likely, concern for, or probable (associated with a specific diagnosi s that is being evaluated, monitored, or treated as if it exists) are acceptable and can be coded in the inpatient se tting, when documented at the time of discharge. Please use your independent medical judgment in providing your response. THIS QUERY IS PART OF THE PERMANENT MEDICAL RECORD
--- NOTE | 2024-06-21 13:36 | MHC.CM.PN ---
Addendum entered by Carmen Espinosa RN 06/21/24 15:09: CM MET W/PT TO COMPLETE A HCP PER PT REQUEST, PT NAMED HIS BROTHER SOO LEONARDO [phone] HIS [facility] AND HIS SISTER RORY IGNACIO [phone] HIS ALTERNATE, COPY UPLOADED TO [employer] AND PLACED IN CHART. Original Note: EMR REVIEWED, PT W/SUSPECTED ETOH HEPATITIS/CIRRHOSIS REMAINS ON MULTIPLE IV MEDS INCLUDING FLUIDS/THIAMINE/ALBUMIN/ABX, PT NOT KATH READY FOR DC, ANTIC PT WILL RETURN HOME WHEN MEDICALLY CLEARED, CM WILL CONT OT FOLLOW DC NEEDS.
[2024-06-21] MEDS: Lactulose 20 GM/30 ML SOLUTION PO ×2 (13:47→20:37)
[2024-06-21] MEDS: Midodrine HCl 10 MG TABLET PO ×2 (16:09→20:14)
[2024-06-21] MEDS: 0.9 % Sodium Chloride 1,000 ML 50 ML IVCONT (20:14)
[2024-06-22] VITALS (12 sets, daily range): BP systolic 108–134; BP diastolic 55–65; PULSE 112–124; RESP 16–22; TEMP 36.1–36.8; O2SAT 86–95
[2024-06-22] MEDS: Albumin Human 25 % 100 ML IV (01:55)
[2024-06-22] MEDS: Piperacillin Sodium/Tazobactam 2.25 GM in 0.9 % Sodium Chloride 50 ML IV ×3 (05:20→16:16)
[2024-06-22] MEDS: ondansetron HCL 4 MG/2 ML VIAL IVPUSH ×2 (08:20→20:22)
[2024-06-22] MEDS: Thiamine HCL 100 MG in 0.9 % Sodium Chloride 100 ML 202 MG IV (08:26)
[2024-06-22] MEDS: Midodrine HCl 10 MG TABLET PO ×2 (08:27→16:16)
[2024-06-22] MEDS: Nicotine 14 MG PATCH.TD24 TRANSDERMA (08:27)
[2024-06-22] MEDS: Multivitamin TABLET 1 TAB PO (08:27)
[2024-06-22] MEDS: Folic Acid 1 MG TABLET PO (08:27)
[2024-06-22] MEDS: 0.9 % Sodium Chloride Flush 3 ML SYRINGE IVFLUSH ×2 (08:27→16:16)
[2024-06-22] MEDS: Lactulose 20 GM/30 ML SOLUTION PO ×2 (08:28→12:32)
[2024-06-22] MEDS: Octreotide Acetate 500 MCG in 0.9 % Sodium Chloride 500 ML 50.1 MCG IVCONT ×2 (08:35→18:13)
[2024-06-22] MEDS: Morphine Sulfate 2 MG/ML CARTRIDGE IVPUSH (08:38)
[2024-06-22 08:47] LABS: INTERNATIONAL NORM RATIO 3.1 (0.9-1.1); Prothrombin Time 36.2 SEC (10.9-12.4)
--- NOTE | 2024-06-22 10:36 | MHC.CM.PN ---
Per ROUNDS discussion, Patient is accepted at [facility] pending bed availability; CM will follow.
[2024-06-22 10:43] LABS: Hematocrit 25.5 % (42.0-52.0); Mean Corpuscular HGB Conc 35.3 g/dl (31.0-36.0); Mean Corpuscular Volume 93.4 fL (80.0-98.0); Mean Platelet Volume 11.5 fL (9.4-12.4); NRBC Pct Auto 0.1 /100WBC (0.0-0.2); Platelet Count 256 X10*3/uL (160-400); Red Blood Count 2.73 X10*6/uL (4.60-5.80)
[2024-06-22 10:54] LABS: Albumin Level 3.7 g/dL (3.5-5.0); Anion Gap 19 (12-20); Aspartate Amino Transferase 115 U/L (5-37); Bilirubin Direct 10.6 mg/dL (0.0-0.5); Bilirubin Total 15.1 mg/dL (0.0-1.0); Blood Urea Nitrogen 48 mg/dL (9-16); Calcium 9.6 mg/dL (8.4-10.2); Carbon Dioxide 18 mmol/L (22-29); Chloride 101 mmol/L (96-108); Creatinine Clr Calc Pharmacy 19.2; Estimated Glomerular Filt Rate 13; Glucose Random 106 mg/dL (60-115); Potassium 3.9 mmol/L (3.3-5.1); Sodium 134 mmol/L (135-145); Total Protein 7.7 g/dL (6.5-8.0)
[2024-06-22 10:57] LABS: Alanine Aminotransferase 45 U/L (0-40); Alkaline Phosphatase 77 U/L (39-117)
[2024-06-22] MEDS: oxyCODONE HCl Immed Release 5 MG TABLET PO (11:16)
[2024-06-22 11:23] LABS: WBC ABN SCTR FOR CBC 1
[2024-06-22 11:36] LABS: Atypical Lymphs Percent Manual 1 % (0-6); Band Neutrophils Percent 9 % (3-5); Lymphocytes Percent Manual 3 % (20-40); Monocytes Percent Manual 6 % (2-11); Neutrophils Percent Manual 81 % (45-73)
[2024-06-22 11:37] LABS: Macrocytosis 1+ (5-14) /OIF; RBC Morphology NOTED
[2024-06-22 11:39] LABS: Burr Cells 1+ (0-2) /OIF; Target Cells 2+ (15-30) /OIF
[2024-06-22 11:40] LABS: Large Platelet PRESENT; Platelet Estimate NORMAL (NORMAL); Platelet Morphology Comment NOTED; Polychromasia 1+ (0-2) /OIF
[2024-06-22 11:41] LABS: Atypical Lymph Absolute Manual 0.2 x10*3/uL; Lymphocytes Absolute Manual 0.6 X10*3/uL (1.2-4.9); Monocytes Absolute Manual 1.3 X10*3/uL (0.1-1.2); Neutrophils Absolute Manual 18.8 X10*3/uL (2.0-8.3); White Blood Count 20.9 X10*3/uL (4.8-10.8)
[2024-06-22] MEDS: Furosemide 40 MG/4 ML VIAL IVPUSH (12:32)
[2024-06-22 12:35] LABS: VBG HCO3 22 mmol/L (22-26); VBG pCO2 43 mmHg; VBG pO2 89 mmHg
[2024-06-22 12:36] LABS: Venous Blood Gas Refer to POC result
[2024-06-22 12:37] LABS: Ammonia 128 umol/L (13-55)
--- NOTE | 2024-06-22 12:45 | P.PNNP_ITS ---
Subjective Subjective Date of Service: 06/22/24 Interval history: Events noted. Ill-appearing Physical Exam 2 Vital Signs: Vital Signs: Last Vital Signs Temp 98.2 F 06/22/24 12:07 Pulse 116 H 06/22/24 12:28 Resp 22 H 06/22/24 12:28 BP 134/59 L 06/22/24 12:28 Pulse Ox 90 L 06/22/24 12:28 O2 Del Method Nasal Cannula 06/22/24 12:28 O2 Flow Rate 4 06/22/24 12:28 BMI result Body Mass Index 23.5 Const: Other: Icteric General: ill appearing Neck: Neck: Yes supple Resp: Auscultation: clear to auscultation bilaterally Cardio: Palpation: no palpable S3 Heart sounds: no rubs GI: Inspection: Yes distended Palpation (GI): Soft to palpation A uscultation: normal bowel sounds Neuro: Motor exam (neuro): no asterixis Objective Data Labs 06/22/24 10:02 06/22/24 10:02 Labs: Laboratory Results - last 24 hr 06/22/24 06/22/24 06/22/24 08:34 10:02 12:25 WBC 20.9 H RBC 2.73 L Hgb 9.0 L Hct 25.5 L MCV 93.4 MCH 33.0 MCHC 35.3 RDW 17.0 H Plt Count 256 MPV 11.5 Immature Gran % (Auto) Cancelled Neut % (Auto) Cancelled Lymph % (Auto) Cancelled [place] % (Auto) Cancelled Eos % (Auto) Cancelled Baso % (Auto) Cancelled Lymph # (Auto) Cancelled [place] # (Auto) Cancelled Eos # (Auto) Cancelled Baso # (Auto) Cancelled Abs Immat Gran (auto) Cancelled Absolute Neuts (auto) Cancelled Absolute Nucleated RBC 0.020 H Nucleated RBC % (auto) 0.1 Neutrophils % (Manual) 81 H Band Neutrophils % 9 H Lymphocytes % (Manual) 3 L Atypical Lymphs % (Man) 1 Monocytes % (Manual) 6 Abs Neuts (Manual) 18.8 H Lymphocytes # (Manual) 0.6 L Atyp Lymphs # (Manual) 0.2 Monocytes # (Manual) 1.3 H Platelet Estimate NORMAL Large Platelets PRESENT Plt Morphology Comment NOTED RBC Morphology NOTED Polychromasia 1+ (0-2) Macrocytosis 1+ (5-14) Target Cells 2+ (15-30) [place] Cells 1+ (0-2) PT 36.2 H D INR 3.1 H VBG pH VBG pCO2 VBG pO2 VBG HCO3 VBG O2 Saturation VBG Base Excess Sodium 134 L Potassium 3.9 Chloride 101 Carbon Dioxide 18 L Anion Gap 19 BUN 48 H Creatinine 4.80 H* Estim Creat Clear Calc 19.2 Estimated GFR 13 Random Glucose 106 Calcium 9.6 D Total Bilirubin 15.1 H Direct Bilirubin 10.6 H AST 115 H ALT 45 H Alkaline Phosphatase 77 Ammonia 128 H Total Protein 7.7 Albumin 3.7 06/22/24 12:31 WBC RBC Hgb Hct MCV MCH MCHC RDW Plt Count MPV Immature Gran % (Auto) Neut % (Auto) Lymph % (Auto) [place] % (Auto) Eos % (Auto) Baso % (Auto) Lymph # (Auto) [place] # (Auto) Eos # (Auto) Baso # (Auto) Abs Immat Gran (auto) Absolute Neuts (auto) Absolute Nucleated RBC Nucleated RBC % (auto) Neutrophils % (Manual) Band Neutrophils % Lymphocytes % (Manual) Atypical Lymphs % (Man) Monocytes % (Manual) Abs Neuts (Manual) Lymphocytes # (Manual) Atyp Lymphs # (Manual) Monocytes # (Manual) Platelet Estimate Large Platelets Plt Morphology Comment RBC Morphology Polychromasia Macrocytosis Target Cells Michelle Cells PT INR VBG pH 7.30 L VBG pCO2 43 VBG pO2 89 VBG HCO3 22 VBG O2 Saturation 96.0 VBG Base Excess -4.0 Sodium Potassium Chloride Carbon Dioxide Anion Gap BUN Creatinine Estim Creat Clear Calc Estimated GFR Random Glucose Calcium Total Bilirubin Direct Bilirubin AST ALT Alkaline Phosphatase Ammonia Total Protein Albumin Microbiology Microbiology Results: Microbiology 06/18/24 20:14 Ascites Fluid Gram Stain - Final 06/18/24 20:14 Ascites Fluid Routine Culture - Final No growth after 2 days 06/18/24 20:14 Ascites Fluid Anaerobic Culture - Preliminary No growth to date. 06/18/24 17:56 Blood - Venous Blood Culture - Preliminary No growth after 48 hours. 06/18/24 17:56 Blood - Venous Blood Culture - Preliminary No growth after 48 hours. 06/18/24 Unknown Urine clean catch - Clean Catch Midstream Urine Culture - Final No growth. Procedures Date of Service Date of Service: 06/22/24 Assessment & Plan Assessment and plan (1) Alcoholic hepatitis with ascites: Status: Acute (2) Hyponatremia: Status: Acute (3) Acute kidney injury: Status: Acute Plan Acute kidney injury and hyponatremia in the setting of alcoholic liver injury. Lazaro has hepatorenal syndrome. Renal function continues to worsen Recommendation DC IV fluids. Lasix p.r.n.. Agree with octreotide and midodrine. Maintain systolic blood pressure more than 90 mm Hg. Monitor urine output closely. Restrict oral free water intake. Avoid nephrotoxic agents including NSAIDs. No absolute indication for dialysis yet. Overall prognosis remains guarded Discussed with Dr. Donaldson , who suggested transferring him to [facility] Time Spent With Patient Time: Total time managing care of this patient today ____ minutes. Progress Note: Quality Stroke Does the patient have a stroke diagnosis?: No
--- NOTE | 2024-06-22 12:45 | P.PNIM_ITS ---
Subjective Subjective Date of Service: 06/22/24 Interval History: seen and examined this morning follow up liver failure, HRS, hepatic encephalopathy awake alert this am; then became more lethargic and increased oxygen requirements Review of Systems Review of Systems: Yes all other systems are reviewed and are negative Constitutional Constitutional: Denies chills and Denies fever(s) Cardiovascular Cardiovascular: Denies chest pain Physical Exam 2 Vital Signs: Vital Signs: Last Vital Signs Temp 98.2 F 06/22/24 12:07 Pulse 116 H 06/22/24 12:28 Resp 22 H 06/22/24 12:28 BP 134/59 L 06/22/24 12:28 Pulse Ox 90 L 06/22/24 12:28 O2 Del Method Nasal Cannula 06/22/24 12:28 O2 Flow Rate 4 06/22/24 12:28 BMI result Body Mass Index 23.5 Const: Other: chronically ill appearing; jaundice Nutritional Appearance: thin Orientation/consciousness: oriented to person and oriented to place Resp: Other: rhonchi b/l Cardio: Rate: tachycardic GI: Other: softly distended; no guarding, no rebound Neuro: Other: asterixis General: oriented to person, oriented to place, moves all extremities and CN's II-XI intact bilaterally Extrem: Other: b/l leg edema Objective Data Active Medications Folic Acid (Folic Acid 1 Mg Tablet) 1 mg PO DAILY [facility] Last Admin: 06/22/24 08:27 Dose: 1 mg Documented By: ALEX Octreotide Acetate 500 mcg/ (Sodium Chloride) 501 mls @ 50.1 mls/hr IVCONT .Q10H [facility] Last Admin: 06/22/24 08:35 Dose: 50 mcg/hr, 50.1 mls/hr Documented By: ALEX Thiamine HCl 100 mg/ Sodium (Chloride) 101 mls @ 202 mls/hr IV DAILY [facility] Last Infusion: 06/22/24 09:27 Dose: Infused Documented By: ALEX Piperacillin Sod/Tazobactam (Sod 2.25 gm/ Sodium Chloride) 50 mls @ 100 mls/hr IV Q6H [facility] Last Infusion: 06/22/24 11:54 Dose: Infused Documented By: ALEX Phytonadione 10 mg/ Sodium (Chloride) 51 mls @ 51 mls/hr IV DAILY [facility] Stop: 06/25/24 12:44 Lactulose (Lactulose 20 Gm/30 Ml Solution) 20 gm PO TID [facility] Last Admin: 06/22/24 12:32 Dose: 20 gm Documented By: ALEX Comments: per PA give now Midodrine (Midodrine Hcl 10 Mg Tablet) 10 mg PO TID [facility] Last Admin: 06/22/24 08:27 Dose: 10 mg Documented By: ALEX Morphine Sulfate (Morphine Sulfate 2 Mg/Ml Cartridge) 2 mg IVPUSH Q6H PRN; Protocol PRN Reason: Pain, Severe (Pain Scale 7-10) Last Admin: 06/22/24 08:38 Dose: 2 mg Documented By: ALEX Multivitamins/Vitamin C (Multivitamin Tablet) 1 tab PO DAILY [facility] Last Admin: 06/22/24 08:27 Dose: 1 tab Documented By: ALEX Nicotine (Nicotine 14 Mg Patch.Td24) 14 mg TRANSDERMA DAILY [facility] Last Admin: 06/22/24 08:27 Dose: 14 mg Documented By: ALEX Ondansetron HCl (Ondansetron Hcl 4 Mg/2 Ml Vial) 4 mg IVPUSH Q8H PRN PRN Reason: Nausea and Vomiting Last Admin: 06/22/24 08:20 Dose: 4 mg Documented By: ALEX Oxycodone HCl (Oxycodone Hcl Immed Release 5 Mg Tablet) 5 mg PO Q6H PRN PRN Reason: Pain, Moderate(Pain Scale 4-6) Last Admin: 06/22/24 11:16 Dose: 5 mg Documented By: ALEX Sodium Chloride (0.9 % Sodium Chloride Flush 3 Ml Syringe) 3 ml IVFLUSH QSHIFT [facility] Last Admin: 06/22/24 08:27 Dose: 3 ml Documented By: ALEX Labs 06/22/24 10:02 06/22/24 10:02 Labs: Laboratory Results - last 24 hr 06/22/24 06/22/24 06/22/24 08:34 10:02 12:25 MCV 93.4 MCH 33.0 MCHC 35.3 RDW 17.0 H Plt Count 256 MPV 11.5 Immature Gran % (Auto) Cancelled Neut % (Auto) Cancelled Lymph % (Auto) Cancelled [place] % (Auto) Cancelled Eos % (Auto) Cancelled Baso % (Auto) Cancelled Lymph # (Auto) Cancelled [place] # (Auto) Cancelled Eos # (Auto) Cancelled Baso # (Auto) Cancelled Abs Immat Gran (auto) Cancelled Absolute Neuts (auto) Cancelled Absolute Nucleated RBC 0.020 H Nucleated RBC % (auto) 0.1 Neutrophils % (Manual) 81 H Band Neutrophils % 9 H Lymphocytes % (Manual) 3 L Atypical Lymphs % (Man) 1 Monocytes % (Manual) 6 Abs Neuts (Manual) 18.8 H Lymphocytes # (Manual) 0.6 L Atyp Lymphs # (Manual) 0.2 Monocytes # (Manual) 1.3 H Platelet Estimate NORMAL Large Platelets PRESENT Plt Morphology Comment NOTED RBC Morphology NOTED Polychromasia 1+ (0-2) Macrocytosis 1+ (5-14) Target Cells 2+ (15-30) [place] Cells 1+ (0-2) PT 36.2 H D INR 3.1 H VBG pH VBG pCO2 VBG pO2 VBG HCO3 VBG O2 Saturation VBG Base Excess Anion Gap 19 Estim Creat Clear Calc 19.2 Estimated GFR 13 Random Glucose 106 Calcium 9.6 D Total Bilirubin 15.1 H Direct Bilirubin 10.6 H AST 115 H ALT 45 H Alkaline Phosphatase 77 Ammonia 128 H Total Protein 7.7 Albumin 3.7 06/22/24 12:31 MCV MCH MCHC RDW Plt Count MPV Immature Gran % (Auto) Neut % (Auto) Lymph % (Auto) [place] % (Auto) Eos % (Auto) Baso % (Auto) Lymph # (Auto) [place] # (Auto) Eos # (Auto) Baso # (Auto) Abs Immat Gran (auto) Absolute Neuts (auto) Absolute Nucleated RBC Nucleated RBC % (auto) Neutrophils % (Manual) Band Neutrophils % Lymphocytes % (Manual) Atypical Lymphs % (Man) Monocytes % (Manual) Abs Neuts (Manual) Lymphocytes # (Manual) Atyp Lymphs # (Manual) Monocytes # (Manual) Platelet Estimate Large Platelets Plt Morphology Comment RBC Morphology Polychromasia Macrocytosis Target Cells Michelle Cells PT INR VBG pH 7.30 L VBG pCO2 43 VBG pO2 89 VBG HCO3 22 VBG O2 Saturation 96.0 VBG Base Excess -4.0 Anion Gap Estim Creat Clear Calc Estimated GFR Random Glucose Calcium Total Bilirubin Direct Bilirubin AST ALT Alkaline Phosphatase Ammonia Total Protein Albumin Microbiology Microbiology Results: Microbiology 06/18/24 20:14 Gram Stain - Final Ascites Fluid Routine Culture - Final No growth after 2 days Anaerobic Culture - Preliminary No growth to date. Assessment and Plan (1) Alcoholic hepatitis with ascites: Status: Acute (2) Pneumonitis: Status: Acute (3) Acute kidney injury: Status: Acute (4) Hepatorenal syndrome: Status: Acute Plan This is a 48 yo M with history of alcohol use who presented with abdominal pain, sob, rectal bleeding found to have acute hepatic failure Suspected acute alcoholic hepatitis / probable cirrhosis with ascites and coagulopathy 1a. HIWOT, likely due to HRS>SCr continues to trend up; creatinine up to 4.80 1b. hepatic encephalopathy>still with asterixis on exam, increase dose of lactulose reports last drink 05/27 continue octreotide, midodrine 10mg TID, s/p albumin q6h x 8 doses Nephrology consult> no indication for dialysis yet, will stop IVF due to worsening respiratory status, IV lasix x1 empiric IV PPI s/p paracentesis>not SBP by cell count GI appreciated>recommend transfer - awaiting ins auth at [facility] not likely to have beds for several days; [facility] IV vitamin k 10 mg daily for three days due to increasing INR will place p[place] for close monitor of urine output, overall UO poor but suspect Is&Os not accurate MELD 37 acute respiratory failure with hypoxia possible pneumonia; likely due to fluid overload from above repeat CXR lasix x1 and assess for affect Rectal bleeding no further episodes stable HH INR trending up Nausea and vomiting improved for now has been able to tolerated NGT Question acute pancreatitis / abdominal pain noted CT abd IV analgsics stop IVF due to worsening respiratory status GI input as above pain improving post paracentesis back on clears due to NV Leukocytosis UA positive for nitrites but no bacteruria imaging with possible pneumonia ascitic fluid negative for sbp empiric zosyn >renally dosed f/u cultures neg elevated bili / creatinine / INR are not due to severe sepsis but suspected due to primary liver/renal etiology HypoNa likely due to #1 Alcohol abuse last drink 05/27 no signs of active withdrawal, monitor with CIWA at this time overall patient continues to deteriorate, discussed with ICU, does not need ICU level of care at this time. updated brother/HCP Anjel at [phone], poor prognosis discussed, ok with transfer to [facility] if accepted Full Code DVT pptx -- mechanical in light of rectal bleeding Quality Stroke Does the patient have a stroke diagnosis?: No VTE Prior VTE?: No VTE Risk Level:: Medical - moderate - high VTE Device Contraindication: N/A - Device Ordered VTE Drug Contraindication: Treatment Not Indicated
--- NOTE | 2024-06-22 12:56 | P.EN_ITS ---
Event Note Date of Service: 06/22/24 Event Note: Patient is a 48 Y M w/ alcohol misuse, c/b cirrhosis marked by ascites, hyperammonia, initially presenting to emergency department on 06/18 w/ abdominal pain and bright red blood per rectum, found to have work-up concerning for decompensated cirrhosis, acute renal insufficiency, admitted medicine; on 06/22, ICU consulted d/t worsening mental status and increased oxygen requirement; upon evaluation, patient alert to person, place, time, and situation; patient ap preciably chronically-ill appearing and jaundiced, though no acute distress, w/o increased work of breathing, satting low 90s on 4 L NC, slightly tachycardic, though otherwise hemodynamically stable; appreciable rhonchi, S1, S2 appreciated, abdomen distended, though soft, compressible, w/o tenderness to palpation throughout, 1+ pitting edema to bilateral shins; patient's clinical status and overall prognosis guarded, and likely poor, especially w/o liver transplantation; however, at this current time, patient does not necessitate ICU; agree w/ lactulose, midodrine, and diuresis; ICU available for any additional questions, concerns, or change in clinical status Time Spent With Patient Time: Total time managing care of this patient today ____ minutes.
[2024-06-22] MEDS: Phytonadione (Vit K1) 10 MG in 0.9 % Sodium Chloride 50 ML 51 MG IV (13:13)
--- NOTE | 2024-06-22 14:40 | PC.NURSE ---
Addendum entered by Char Urbano RN 06/22/24 18:26: Pt saturating 91% on 5L Nc, no signs and symptoms of respiratory distress. Original Note: Assumed care of patient at 06:45. Pt alert and oriented x4 with am assessment. Approximately 12:05 ELIZABETH Mcdonough made are pt appears to be drowsy alertx4 to voice, pt noted to have increased work of breathing with accessory muscle use. VS as follows 113/59, HR 116, o2 89% on 3L. Pt Lungs dim throughout, rhonchi and crackles noted throughout right lung which is consistent with AM assessment, pt increased to 4L Nc. CXR ordered, continuous o2 monitoring ordered , IVF stopped, IV lasix ordered and given per MAR, Lactulose dose given per PA. PA instructed this RN to place FC for acute renal failure. FC placed, pt c/o pain with insertion, scant amount of blood noted, 10ml of dark brown urine drained immediately. PT INR results 36.2 and 3.1, 1x dose of vit k IV infusion ordered and given per AUG. PA Made aware at 13:54 Pt removed o2 and was saturating at 85%, pt having difficultly getting o2 saturation back up, o2 was gradually increased to 7L nc saturating 90-91%. Pt continues to be alert and oriented to voice but has reported visual hallucinations of bugs flying around the room. Family at bedside, all safety measures in place.
--- NOTE | 2024-06-22 15:14 | P.DS_ITS ---
DS: Providers Provider Date of Service: 06/22/24 Date of admission: 06/18/24 22:28 Date of discharge: 06/22/24 Primary care physician: None Physician Consults: 06/18/24 22:30 Consult to Gastroenterology Routine Consulting Provider: Emerson Singh Reason for consultation: Liver failure, Rectal bleeding Has provider been notified: No 06/18/24 23:22 Consult to Nephrology Routine Consulting Provider: [facility] Reason for consultation: Hepatorenal syndrome, HIWOT Has provider been notified: No 06/22/24 12:10 Consult to Critical Care Routine Consulting Provider: Lesvia Polanco Reason for consultation: liver failure, respiratory failure Has provider been notified: No Attending physician on discharge: Teofilo Knutson Discharging clinician: Chantal Mcdonough DS: Diagnosis Discharge Diagnosis (1) Alcoholic hepatitis with ascites: Status: Acute (2) Pneumonitis: Status: Acute (3) Acute kidney injury: Status: Acute (4) Hepatorenal syndrome: Status: Acute DS: Summary Hospital Course Hospital Course: From H&P on the day of admission Lazaro Hernandez is a 48 years old man with past medical history is or alcohol abuse presents to the emergency department complaining of worsening generalized abdominal pain over the last couple of days associated with increased abdominal girth, shortness of breath with exertion, nausea, vomiting (nonbloody) and rectal bright red bleeding. He is not aware that his skin and sclerae have yellowish tint. He denied chest pain, headache, palpitations or dizziness. Denies fevers chills. Last time he drank alcohol was May 27. He denied tobacco smoking or illicit drug use. He takes Tylenol very occasionally. He does not take any medication daily. Patient underwent a paracentesis in the emergency department. In the emergency department he was found to have stable vital signs. There is a mild degree of tachycardia. Blood workup showed leukocytosis of 27.2, hemoglobin 11.5 and platelets are normal. CRP is 9.93. INR is 2.0. Sodium is low, 124, potassium is 3.8, BUN is 28 and creatinine 2.49. Lactic acid is normal x2. LFTs are mildly elevated (bilirubin is 17.7, direct bilirubin 12.9, AST 207, ALT 86 and alk-phos 118). Albumin is 2.3 and lipase 445. Ammonia level is elevated 103. EtOH level < 10. Viral testing for COVID-19, influenza and RSV is negative. Hepatitis panel is pending. Abdominal pelvis CT scan showed pancreatic lesion of 2.6 cm that could be neoplasm, small pseudocyst or necrosis. CXR showed finding consistent with pneumonitis. ECG showed sinus tachycardia, heart rate 109 bpm without ischemic changes. Peritoneal fluid analysis is not consistent with infection or hemorrhage. Suspected acute alcoholic hepatitis / probable cirrhosis with ascites and coagulopathy 1a. HIWOT, likely due to HRS>SCr continues to trend up; creatinine up to 4.80 1b. hepatic encephalopathy>still with asterixis on exam, dose of lactulose increased to 20 TID, started on rifaximin reports last drink 05/27 continue octreotide drip, midodrine 10mg TID, s/p albumin q6h x 8 doses Nephrology following> no indication for dialysis yet, initially trialed on genle IVF but due to worsening of respiratory status fluids were discontinued and he received IV lasix 40 mg x1 IV PPI s/p paracentesis 06/19 >not SBP by cell count IV vitamin k 10 mg daily for three days due to increasing INR, 3.[address] ponce for close monitor of urine output, overall UO poor but suspect Is&Os not accurate overall GI recommends transfer for higher level of care acute respiratory failure with hypoxia possible pneumonia on initial imaging and was started on zosyn; worsening respiratory failure likely due to fluid overload from above repeat CXR with ards vs pna given lasix 40mg IV x1 with minimal urine output has remained on 5L supplemental oxygen via [place] Rectal bleeding on admission. no overt GI bleeding since admission Question acute pancreatitis / abdominal pain noted CT abd. initial lipase 445. advanced to full liquid diet. was getting gentle IVF due to HIWOT but IVF stopped due to worsening respiratory status. Leukocytosis UA positive for nitrites but no bacteruria. imaging with possible pneumonia. ascitic fluid negative for sbp empiric zosyn >renally dosed blood cultures negative; no growth from ascitic fluid or urine culture elevated bili / creatinine / INR are not due to severe sepsis but suspected due to primary liver/renal etiology White count remains elevated but slowly trending down, peaked at 29.9 on June 19, down to 20.9 HypoNa likely due to #1 Alcohol abuse last drink reportedly 05/27. no signs of active withdrawal, has been monitored on CIWA which has remained low Due to overall worsening condition with liver failure, renal failure, respiratory failure, coagulopathy, patient will be transferred to [facility] for further care. Accepting provider Dr. Zelaya Time Attestation Discharge Coordination Time (in mins): 75 Quality: Safe Use of Opioids Does Pt have an Active Cancer Diagnosis on the Problem List?: No Quality: Stroke Does the patient have a stroke diagnosis?: No Physical Exam Vital Signs: Vital Signs: Last Vital Signs Temp 98.1 F 06/22/24 15:05 Pulse 120 H 06/22/24 15:05 Resp 16 06/22/24 15:05 BP 110/55 L 06/22/24 15:05 Pulse Ox 91 L 06/22/24 15:05 O2 Del Method Nasal Cannula 06/22/24 15:05 O2 Flow Rate 5 06/22/24 15:05 BMI result Body Mass Index 23.5 Const: Other: chronically ill appearing; jaundice; oriented to person and place but disoriented to situation Nutritional Appearance: thin Orientation/consciousness: oriented to person and oriented to place Resp: Other: rhonchi b/l Effort & Inspection: able to speak in complete sentences and no use of accessory muscles Cardio: Rate: tachycardic GI: Other: softly distended; no guarding, no rebound Neuro: Other: asterixis General: oriented to person, oriented to place, moves all extremities and CN's II-XI intact bilaterally Extrem: Other: b/l leg edema DS: Data Data Completed and Pending Labs on day of discharge: Laboratory Results - last 24 hr 06/22/24 06/22/24 06/22/24 08:34 10:02 12:25 WBC 20.9 H RBC 2.73 L Hgb 9.0 L Hct 25.5 L MCV 93.4 MCH 33.0 MCHC 35.3 RDW 17.0 H Plt Count 256 MPV 11.5 Immature Gran % (Auto) Cancelled Neut % (Auto) Cancelled Lymph % (Auto) Cancelled [place] % (Auto) Cancelled Eos % (Auto) Cancelled Baso % (Auto) Cancelled Lymph # (Auto) Cancelled [place] # (Auto) Cancelled Eos # (Auto) Cancelled Baso # (Auto) Cancelled Abs Immat Gran (auto) Cancelled Absolute Neuts (auto) Cancelled Absolute Nucleated RBC 0.020 H Nucleated RBC % (auto) 0.1 Neutrophils % (Manual) 81 H Band Neutrophils % 9 H Lymphocytes % (Manual) 3 L Atypical Lymphs % (Man) 1 Monocytes % (Manual) 6 Abs Neuts (Manual) 18.8 H Lymphocytes # (Manual) 0.6 L Atyp Lymphs # (Manual) 0.2 Monocytes # (Manual) 1.3 H Platelet Estimate NORMAL Large Platelets PRESENT Plt Morphology Comment NOTED RBC Morphology NOTED Polychromasia 1+ (0-2) Macrocytosis 1+ (5-14) Target Cells 2+ (15-30) [place] Cells 1+ (0-2) PT 36.2 H D INR 3.1 H VBG pH VBG pCO2 VBG pO2 VBG HCO3 VBG O2 Saturation VBG Base Excess Sodium 134 L Potassium 3.9 Chloride 101 Carbon Dioxide 18 L Anion Gap 19 BUN 48 H Creatinine 4.80 H* Estim Creat Clear Calc 19.2 Estimated GFR 13 Random Glucose 106 Calcium 9.6 D Total Bilirubin 15.1 H Direct Bilirubin 10.6 H AST 115 H ALT 45 H Alkaline Phosphatase 77 Ammonia 128 H Total Protein 7.7 Albumin 3.7 06/22/24 12:31 WBC RBC Hgb Hct MCV MCH MCHC RDW Plt Count MPV Immature Gran % (Auto) Neut % (Auto) Lymph % (Auto) [place] % (Auto) Eos % (Auto) Baso % (Auto) Lymph # (Auto) [place] # (Auto) Eos # (Auto) Baso # (Auto) Abs Immat Gran (auto) Absolute Neuts (auto) Absolute Nucleated RBC Nucleated RBC % (auto) Neutrophils % (Manual) Band Neutrophils % Lymphocytes % (Manual) Atypical Lymphs % (Man) Monocytes % (Manual) Abs Neuts (Manual) Lymphocytes # (Manual) Atyp Lymphs # (Manual) Monocytes # (Manual) Platelet Estimate Large Platelets Plt Morphology Comment RBC Morphology Polychromasia Macrocytosis Target Cells [place] Cells PT INR VBG pH 7.30 L VBG pCO2 43 VBG pO2 89 VBG HCO3 22 VBG O2 Saturation 96.0 VBG Base Excess -4.0 Sodium Potassium Chloride Carbon Dioxide Anion Gap BUN Creatinine Estim Creat Clear Calc Estimated GFR Random Glucose Calcium Total Bilirubin Direct Bilirubin AST ALT Alkaline Phosphatase Ammonia Total Protein Albumin Preliminary micro results at discharge 06/18/24 20:14 Anaerobic Culture - Preliminary Ascites Fluid No growth to date. 06/18/24 17:56 Blood Culture - Preliminary Blood - Venous No growth after 48 hours. 06/18/24 17:56 Blood Culture - Preliminary Blood - Venous No growth after [address] scan - abdomen: Radiologist's impression: ITS Impressions Date of Service: 06/18/24 Procedure(s): CT abdomen pelvis wo IV con IMPRESSION: 1. Mild liver surface contour abnormality concerning for cirrhosis. Moderate free fluid in the abdomen and pelvis as can be seen with ascites. The spleen is nonenlarged at this time. 2. Nonspecific cystic lesion medially directed from the uncinate process of the pancreas, measuring 2.6 cm. Differential considerations include small pseudocyst. Walled-off area of necrosis and neoplasm are not excluded by noncontrast CT. Please consider follow-up; as clinically directed. 3. Mild small bowel dilatation is nonspecific. Differential considerations include ileus secondary to ascites. 4. Diffuse wall thickening of the large intestine. Differential considerations include ascites. 5. Degenerative disc changes greater than expected for age, particularly in the lower lumbar spine. Paracentesis Ultrasound 06/19/24 09:00 Impression: Ultrasound-guided paracentesis as described above. No immediate complications Electronically signed by: Patrick Morgan MD 06/21/2024 05:26 PM EST RP Chest X-Ray 06/22/24 13:25 IMPRESSION: Diffuse bilateral airspace opacities compatible, with pneumonia or ARDS. Pulmonary edema is felt to be less likely given normal heart size and lack of pleural effusions. Electronically signed by: Juwan Kelley MD 06/22/2024 01:53 PM EST RP Discharge Plan Discharge Anticipated Discharge Date/Time: 06/22/24 15:43 Patient Disposition: Xfer Acute Care Hospital Discharge Diagnosis: acute etoh hepatitis HIWOT due to hepatorenal syndrome acute respiratory failure with hypoxia due to fluid overload due to above Referrals: Physician,None [Primary Care Provider] - 1 Week Discharge Medications: New pantoprazole [Protonix] 40 mg Recon Soln 40 mg IVPUSH DAILY@0630 Qty: 10 0RF piperacillin-tazobactam 2.25 gram Recon Soln 2.25 g IV Q6H Qty: 10 0RF midodrine 10 mg Tablet 10 mg PO TID Qty: 30 0RF lactulose 20 gram/30 mL Solution 20 g PO TID Qty: 1200 0RF phytonadione (vitamin K1) [Vitamin K1] 10 mg/mL Solution 10 mg IV DAILY Qty: 10 0RF folic acid 1 mg Tablet 1 mg PO DAILY Qty: 30 0RF Xifaxan 550 mg Tablet 550 mg PO BID Qty: 30 0RF Discharge Orders: Discharge Order (Routine); Ordered 06/22/24 Ordered By: Chantal Mcdonough Activity on Discharge: As tolerated Stand Alone Forms: Patient Portal Discharge page Print Language: Niuean Care Plan Goals: see below Health Concerns: Acute alcoholic hepatitis HIWOT due to presumed hepatorenal syndrome Acute respiratory failure with hypoxia Possible pneumonia Plan of Treatment: Transfer to tertiary care facility for higher level of care Assessment: see discharge summary
[2024-06-22 15:16] LABS: Procalcitonin 1.33 ng/mL
--- NOTE | 2024-06-22 16:05 | PM.GIPN ---
Subjective Subjective Date of Service: 06/22/24 Interval History: worsening labs oliguria SOB still alert Critical Care Time (minutes): 0 Physical Exam Vital Signs: Vital Signs: Last Vital Signs Temp 98.1 F 06/22/24 15:05 Pulse 120 H 06/22/24 15:05 Resp 16 06/22/24 15:05 BP 110/55 L 06/22/24 15:05 Pulse Ox 91 L 06/22/24 15:05 O2 Del Method Nasal Cannula 06/22/24 15:05 O2 Flow Rate 5 06/22/24 15:05 BMI result Body Mass Index 23.5 EXAM: GENERAL: The patient is jaundiced VITAL SIGNS:see workflow HEENT: icteric sclerae, PERRLA, EOMI. Oropharynx clear. Moist mucous membranes. Conjunctivae appear well perfused. No thyroid mass. CHEST: Chest wall is nontender. HEART: Regular rate and rhythm without murmurs. LUNGS: b/l crackles ABDOMEN: Soft, positive bowel sounds, generally tender, no organomegaly.no flank tenderness-distended with shifting dullness SKIN: No rash, no excessive bruising, petechiae, or purpura. NEUROLOGIC: Cranial nerves II-XII intact without motor/sensory deficit.asterixis Psych: normal affect Objective Data Labs 06/22/24 10:02 06/22/24 10:02 Labs: Laboratory Results - last 24 hr 06/22/24 06/22/24 06/22/24 08:34 10:02 12:25 WBC 20.9 H RBC 2.73 L Hgb 9.0 L Hct 25.5 L MCV 93.4 MCH 33.0 MCHC 35.3 RDW 17.0 H Plt Count 256 MPV 11.5 Immature Gran % (Auto) Cancelled Neut % (Auto) Cancelled Lymph % (Auto) Cancelled [place] % (Auto) Cancelled Eos % (Auto) Cancelled Baso % (Auto) Cancelled Lymph # (Auto) Cancelled [place] # (Auto) Cancelled Eos # (Auto) Cancelled Baso # (Auto) Cancelled Abs Immat Gran (auto) Cancelled Absolute Neuts (auto) Cancelled Absolute Nucleated RBC 0.020 H Nucleated RBC % (auto) 0.1 Neutrophils % (Manual) 81 H Band Neutrophils % 9 H Lymphocytes % (Manual) 3 L Atypical Lymphs % (Man) 1 Monocytes % (Manual) 6 Abs Neuts (Manual) 18.8 H Lymphocytes # (Manual) 0.6 L Atyp Lymphs # (Manual) 0.2 Monocytes # (Manual) 1.3 H Platelet Estimate NORMAL Large Platelets PRESENT Plt Morphology Comment NOTED RBC Morphology NOTED Polychromasia 1+ (0-2) Macrocytosis 1+ (5-14) Target Cells 2+ (15-30) [place] Cells 1+ (0-2) PT 36.2 H D INR 3.1 H VBG pH VBG pCO2 VBG pO2 VBG HCO3 VBG O2 Saturation VBG Base Excess Sodium 134 L Potassium 3.9 Chloride 101 Carbon Dioxide 18 L Anion Gap 19 BUN 48 H Creatinine 4.80 H* Estim Creat Clear Calc 19.2 Estimated GFR 13 Random Glucose 106 Calcium 9.6 D Total Bilirubin 15.1 H Direct Bilirubin 10.6 H AST 115 H ALT 45 H Alkaline Phosphatase 77 Ammonia 128 H Total Protein 7.7 Albumin 3.7 Procalcitonin 1.33 06/22/24 12:31 WBC RBC Hgb Hct MCV MCH MCHC RDW Plt Count MPV Immature Gran % (Auto) Neut % (Auto) Lymph % (Auto) [place] % (Auto) Eos % (Auto) Baso % (Auto) Lymph # (Auto) [place] # (Auto) Eos # (Auto) Baso # (Auto) Abs Immat Gran (auto) Absolute Neuts (auto) Absolute Nucleated RBC Nucleated RBC % (auto) Neutrophils % (Manual) Band Neutrophils % Lymphocytes % (Manual) Atypical Lymphs % (Man) Monocytes % (Manual) Abs Neuts (Manual) Lymphocytes # (Manual) Atyp Lymphs # (Manual) Monocytes # (Manual) Platelet Estimate Large Platelets Plt Morphology Comment RBC Morphology Polychromasia Macrocytosis Target Cells Michelle Cells PT INR VBG pH 7.30 L VBG pCO2 43 VBG pO2 89 VBG HCO3 22 VBG O2 Saturation 96.0 VBG Base Excess -4.0 Sodium Potassium Chloride Carbon Dioxide Anion Gap BUN Creatinine Estim Creat Clear Calc Estimated GFR Random Glucose Calcium Total Bilirubin Direct Bilirubin AST ALT Alkaline Phosphatase Ammonia Total Protein Albumin Procalcitonin Microbiology Microbiology Results: Microbiology 06/18/24 20:14 Ascites Fluid Gram Stain - Final 06/18/24 20:14 Ascites Fluid Routine Culture - Final No growth after 2 days 06/18/24 20:14 Ascites Fluid Anaerobic Culture - Preliminary No growth to date. 06/18/24 17:56 Blood - Venous Blood Culture - Preliminary No growth after 48 hours. 06/18/24 17:56 Blood - Venous Blood Culture - Preliminary No growth after 48 hours. 06/18/24 Unknown Urine clean catch - Clean Catch Midstream Urine Culture - Final No growth. Procedures Date of Service Date of Service: 06/22/24 Progress Note: A&P Assessment and plan (1) Alcoholic hepatitis with ascites: Status: Acute Plan 1/ Acute alcohol hepatitis with HRS-HIWOT variant with oliguria and crackles on exam suggestive of overload. PLAN 1/ recommend transfer due to worsening renal function and oliguria 2/ nutrition consult and high protein intake 3.hold steroids 4/ already on midodrine, octreoide and albumin 5/ ponce and monitor UO, consder rept US abdo Time Spent With Patient Time: Total time managing care of this patient today ____ minutes. Quality Stroke Does the patient have a stroke diagnosis?: No VTE Prior VTE?: No VTE Risk Level:: Medical - moderate - high VTE Device Contraindication: N/A - Device Ordered VTE Drug Contraindication: Treatment Not Indicated
== END 2024-06-22 20:35 | disposition short-term general hospital (02) | DRG 280 ==
LOC: HO.ED 22:48 → HO.EDOVER 22:54 → HO.IMC 06-20 12:57
PROVIDERS: Family Medicine; Internal Medicine Gastroenterology; Nurse Practitioner Acute Care; Nurse Practitioner Family; Physician Assistant Surgical; Admitting Provider Internal Medicine; Emergency Provider Emergency Medicine; Visit Provider Physician Assistant Medical
DX: K70.11 Alcoholic hepatitis with ascites (principal); K70.31 Alcoholic cirrhosis of liver with ascites; J96.01 Acute respiratory failure with hypoxia; K76.7 Hepatorenal syndrome; E87.1 Hypo-osmolality and hyponatremia; D68.4 Acquired coagulation factor deficiency; N17.9 Acute kidney failure, unspecified; D64.9 Anemia, unspecified; K59.00 Constipation, unspecified; F17.210 Nicotine dependence, cigarettes, uncomplicated; F10.10 Alcohol abuse, uncomplicated; K76.82 Hepatic encephalopathy; Z20.822 Contact with and (suspected) exposure to COVID-19; Z79.899 Other long term (current) drug therapy
CPT/HCPCS: 0241U; 36415; 49083; 71045; 71046; 74176; 80048; 80053; 80076; 80143; 80307; 81001; 82042; 82140; 82150; 82803; 82945; 83605; 83615; 83690; 83735; 83880; 84145; 84157; 84300; 85007; 85025; 85027; 85610; 86140; 86704; 86706; 86709; 86803; 86850; 86900; 86901; 87040; 87070; 87073; 87086; 87205; 87340; 89051; 93005; 99285; C1758; J0131; J0456; J0696; J1940; J2003; J2270; J2354; J2405; J2470; J2543; J3411; J3430; P9047

== ENCOUNTER → 2024-06-18 15:05 | Outpatient (BNV) | payer MEDICAID, SELFPAY | PROVIDERS: Admitting Provider Internal Medicine; Emergency Provider Emergency Medicine; Visit Provider Internal Medicine Cardiovascular Disease | DX: R00.0 Tachycardia, unspecified (principal) | CPT/HCPCS: 93010 ==

== ENCOUNTER → 2024-06-18 17:16 | Outpatient (BNV) | payer MEDICAID, SELFPAY | PROVIDERS: Emergency Provider Emergency Medicine; Visit Provider Radiology Neuroradiology | DX: R10.9 Unspecified abdominal pain (principal) | CPT/HCPCS: 71046; 74176 ==

== ENCOUNTER 2024-06-18 22:28 | Outpatient (BNV) | payer MEDICAID, SELFPAY | END 2024-06-22 13:25 | PROVIDERS: Admitting Provider Internal Medicine; Emergency Provider Emergency Medicine; Visit Provider Radiology Diagnostic Radiology | DX: J18.9 Pneumonia, unspecified organism (principal) | CPT/HCPCS: 71045 ==

== ENCOUNTER 2024-06-18 22:28 | Outpatient (BNV) | payer MEDICAID, SELFPAY | END 2024-06-19 09:00 | PROVIDERS: Admitting Provider Internal Medicine; Emergency Provider Emergency Medicine; Visit Provider Physician Assistant Surgical | DX: R18.8 Other ascites (principal) | CPT/HCPCS: 49083 ==

== ENCOUNTER → 2024-06-18 22:28 | Outpatient (BNV) | payer MEDICAID, SELFPAY | PROVIDERS: Admitting Provider Internal Medicine; Emergency Provider Emergency Medicine; Visit Provider Internal Medicine Gastroenterology | DX: K70.11 Alcoholic hepatitis with ascites (principal) | CPT/HCPCS: 99232; 99233 ==

== ENCOUNTER → 2024-06-18 22:28 | Outpatient (BNV) | payer MEDICAID, SELFPAY | PROVIDERS: Admitting Provider Internal Medicine; Emergency Provider Emergency Medicine; Visit Provider Internal Medicine | DX: K70.11 Alcoholic hepatitis with ascites (principal) | CPT/HCPCS: 99223; 99232; 99233; 99239 ==

== ENCOUNTER → 2024-06-18 22:28 | Outpatient (BNV) | payer MEDICAID, SELFPAY | PROVIDERS: Admitting Provider Internal Medicine; Emergency Provider Emergency Medicine; Visit Provider Physician Assistant Surgical | DX: R18.8 Other ascites (principal) | CPT/HCPCS: 32555 ==

== ENCOUNTER → 2024-06-18 22:28 | Outpatient (BNV) | payer MEDICAID, SELFPAY | PROVIDERS: Admitting Provider Internal Medicine; Emergency Provider Emergency Medicine; Visit Provider Internal Medicine Hypertension Specialist | DX: K70.11 Alcoholic hepatitis with ascites (principal); E87.1 Hypo-osmolality and hyponatremia; N17.9 Acute kidney failure, unspecified | CPT/HCPCS: 99223; 99232 ==